=== PATIENT | male | born 1960 | race Caucasian/White ===

== ENCOUNTER 2018-12-16 13:54 | Emergency (ER) | payer OTHER ==
[2018-12-16 14:10] VITALS: BP 126/84; PULSE 76; TEMP 98.5; BMI 27.0
--- NOTE | 2018-12-16 16:12 | PDOC ---
History of Present Illness - General Chief Complaint: Headache Stated Complaint: SINUS HEADACHE Time Seen by Provider: 12/16/18 16:04 History Source: Patient Exam Limitations: Physical Impairment - History of Present Illness Initial Comments: 12/16/18 16:14 Patient with no significant past medical history present with complaint of one- week history of nasal congestion, sinus pain and headache. Patient reported he saw his PCP couple days ago for symptoms and was only given nasal spray which has not been helping. denies dizziness, nausea, vomiting. Denies fever or chills. Denies any other symptoms Timing/Duration: reports: 1 week Past History - Past Medical History Allergies/Adverse Reactions: Allergies Allergy/AdvReac Type Severity Reaction Status Date / Time No Known Allergies Allergy Verified 03/25/13 14:19 Home Medications: Ambulatory Orders Aspirin Coated [Ecotrin -] 81 mg PO DAILY 03/27/13 Atorvastatin Calcium 20 mg PO DAILY 03/27/13 Insulin (Levemir) [Levemir Flexpen -] 35 units SCJ DAILY 03/27/13 Insulin (Novolog) [Novolog Flexpen -] 100 units SCJ DAILY 03/27/13 Levothyroxine [Synthroid -] 25 mcg PO DAILY 03/27/13 Lisinopril 10 mg PO DAILY 03/27/13 Nabumetone [Relafen -] 500 mg PO DAILY 03/27/13 Amox-Tr/K Cl [Augmentin - 875Mg Tablet] 1 tab PO BID #14 tablet 12/16/18 Loratadine 10 mg PO DAILY #10 capsule 12/16/18 Anemia: No Asthma: No Cancer: No Cardiac Disorders: No CVA: No COPD: No CHF: No Dementia: No Diabetes: Yes GI Disorders: Yes Disorders: No HTN: Yes Hypercholesterolemia: Yes Liver Disease: No Seizures: No Thyroid Disease: Yes - Surgical History Abdominal Surgery: No Appendectomy: No Cardiac Surgery: No Cholecystectomy: No Lung Surgery: No Neurologic Surgery: No Orthopedic Surgery: Yes (LT KNEE REPLACEMENT, RT KNEE ARTHROSCOPY) - Suicide/Smoking/Psychosocial Hx Smoking History: Current every day smoker Have you smoked in the past 12 months: No Number of Cigarettes Smoked Daily: 20 Information on smoking cessation initiated: No 'Breaking Loose' booklet given: 03/27/13 Hx Alcohol Use: Yes Drug/Substance Use Hx: No Neuro Specific PMHX - Complaint Specific PMHX Glaucoma: No Herniated Disk: No Migraine: No Neuropathy: No TIA: No Review of Systems - Review of Systems Able to Perform ROS?: Yes Is the patient limited [place] proficient: No Constitutional: No: Symptoms Reported, See HPI, Chills, Diaphoresis, Fever, Loss of Appetite, Malaise, Night Sweats, Weakness, Weight Stable, Unintentional Wgt. Loss, Unexplained wgt Loss, Other HEENTM: Yes: Symptoms Reported, See HPI, Nose Congestion, Other (sinus pain). No: Eye Pain, Blurred Vision, Tearing, Recent change in vision, Double Vision, Cataracts, Ear Pain, Ocular Prothesis, Ear Discharge, Nose Pain, Tinnitus, Nose Bleeding, Hearing Loss, Throat Pain, Throat Swelling, Mouth Pain, Dental Problems, Difficulty Swallowing, Mouth Swelling Respiratory: No: Symptoms reported, See HPI, Cough, Orthopnea, Shortness of Breath, SOB with Exertion, SOB at Rest, Stridor, Wheezing, Productive cough, Hemoptysis, Other Cardiac (ROS): No: Symptoms Reported, See HPI, Chest Pain, Edema, Irregular Heart Rate, Lightheadedness, Palpitations, Syncope, Chest Tightness, Other ABD/GI: No: Nausea, Vomiting Neurological: Yes: Headache. No: Numbness, Paresthesia, Seizure, Weakness, Ataxia, Dizziness All Other Systems: Reviewed and Negative *Physical Exam - Vital Signs Last Vital Signs Temp Pulse Resp BP Pulse Ox 98.5 F 76 20 126/84 100 12/16/18 14:06 12/16/18 14:06 12/16/18 14:06 12/16/18 14:06 12/16/18 14:06 - Physical Exam Comments: 12/16/18 16:15 GENERAL: Well developed, well nourished. Awake and alert. No acute distress. HEENT: Normocephalic, atraumatic. PERRLA, EOMI. No conjunctival pallor. Sclera are non-icteric. Moist mucous membranes. Oropharynx is clear. NECK: Supple. Full ROM. CARDIOVASCULAR: Regular rate and rhythm. No murmurs, rubs, or gallops. Distal pulses are 2+ and symmetric. PULMONARY: No evidence of respiratory distress. Lungs clear to auscultation bilaterally. No wheezing, rales or rhonchi. ABDOMINAL: Soft. Non-tender. Non-distended. No rebound or guarding. No organomegaly. Normoactive bowel sounds. MUSCULOSKELETAL Normal range of motion at all joints. SKIN: Warm and dry. Normal capillary refill. No rashes. No jaundice. NEUROLOGICAL: Alert, awake, appropriate. Gait is normal without ataxia. PSYCHIATRIC: Cooperative. Good eye contact. Appropriate mood General Appearance: Yes: Nourished, Appropriately Dressed. No: Apparent Distress Medical Decision Making - Medical Decision Making 12/16/18 16:16 Patient with no significant past medical history present with complaint of one- week history of nasal congestion, sinus pain and intermittent headaches. Patient denies nausea, vomiting, dizziness or any other symptoms. Clinical exam unremarkable except mild bilateral maxillary sinus tenderness. Normal neuro exam. Lungs clear to auscultation bilateral. Patient stable for outpatient management for sinusitis with ENT follow-up *DC/Admit/Observation/Transfer Diagnosis at time of Disposition: Sinusitis Qualifiers: Sinusitis location: frontal Chronicity: acute Recurrence: non-recurrent Qualified Code(s): J01.10 - Acute frontal sinusitis, unspecified Headache Qualifiers: Headache type: tension-type Headache chronicity pattern: episodic headache Intractability: not intractable Qualified Code(s): G44.219 - Episodic tension- type headache, not intractable - Discharge Dispostion Disposition: HOME Condition at time of disposition: Stable Decision to Admit order: No - Prescriptions Prescriptions: Amox-Tr/K Cl [Augmentin - 875Mg Tablet] 1 tab PO BID #14 tablet Loratadine 10 mg PO DAILY #10 capsule - Referrals Referrals: Chuck Dejesus MD [Staff Physician] - - Patient Instructions Printed Discharge Instructions: Sinusitis Additional Instructions: Take medications as prescribed. Increase fluid intake. Follow-up referred ENT if no improvement in 4 days. - Post Discharge Activity
== END 2018-12-16 16:16 | disposition home or self-care (01) ==
LOC: JERFT 13:54
DX: J01.10 Acute frontal sinusitis, unspecified (principal); G44.219 Episodic tension-type headache, not intractable
CPT/HCPCS: 99281-25

== ENCOUNTER 2022-03-06 12:39 | Emergency (ER) | payer OTHER ==
[2022-03-06 13:03] VITALS: BP 139/81; PULSE 76; TEMP 98.3; BMI 27.3
[2022-03-06] MEDS ORDERED: DIPHTH,PERTUSS(ACELL),TET 0.5 ML DISP.SYRIN IM ONE ×2 (13:19→14:07)
[2022-03-06] MEDS ORDERED: LIDOCAINE HCL 1%, 10 MG/ML (50 mL VIAL) SQ ONE (13:19)
== END 2022-03-06 14:37 | disposition home or self-care (01) ==
LOC: FER 12:39
PROC: 0HQGXZZ Repair Left Hand Skin, External Approach (ICD-10-PCS; principal; 2022-03-06)
PROC: 3E0234Z Introduction of Serum, Toxoid and Vaccine into Muscle, Percutaneous Approach (ICD-10-PCS; 2022-03-06)
DX: S61.315A Laceration without foreign body of left ring finger with damage to nail, initial encounter (principal); S62.605B Fracture of unspecified phalanx of left ring finger, initial encounter for open fracture; W31.2XXA Contact with powered woodworking and forming machines, initial encounter
CPT/HCPCS: 73130-TC-LT-FY; 90715; 99284-25

== ENCOUNTER 2022-03-08 09:45 | Inpatient (IN) | payer OTHER ==
[2022-03-08 10:20] VITALS: BMI 23.6
[2022-03-08] MEDS ORDERED: SODIUM CHLORIDE 0.9% 500 ML INFUS.BAG IV ONE ×2 (10:49→12:12)
[2022-03-08 10:52] LABS: INR 0.97 (0.83-1.09); PROTHROMBIN TIME (PATIENT) 11.2 SEC (9.7-13.0)
[2022-03-08 10:55] LABS: ACTIVATED PTT 27.2 SECONDS (25.2-36.5)
[2022-03-08 11:05] LABS: CHLORIDE 81 mmol/L (98-107); SODIUM 122 mmol/L (136-145)
[2022-03-08 11:06] LABS: CALCIUM 9.9 mg/dL (8.5-10.1)
[2022-03-08 11:07] LABS: ALBUMIN 3.8 g/dl (3.4-5.0); BLOOD UREA NITROGEN 48.5 mg/dL (7-18); CO2 5 mmol/L (21-32); MAGNESIUM 3.2 mg/dL (1.8-2.4)
[2022-03-08 11:08] LABS: LIPASE 194 U/L (73-393)
[2022-03-08 11:09] LABS: SGPT/ALT 51 U/L (13-61)
[2022-03-08 11:10] LABS: SGOT/AST 37 U/L (15-37)
[2022-03-08 11:11] LABS: BILIRUBIN,TOTAL 0.6 mg/dL (0.2-1); TOT PROT 8.1 g/dl (6.4-8.2)
[2022-03-08 11:12] LABS: ALK PHOS 216 U/L (45-117)
[2022-03-08 11:16] LABS: LACTIC ACID 9.5 mmol/L (0.4-2.0)
[2022-03-08 11:24] LABS: VENOUS BASE EXCESS -29.1 mmol/L (-2-2); VENOUS O2 SATURATION 98.7 % (70-80); VENOUS PCO2 21.8 mmHg (38-52)
[2022-03-08 11:26] LABS: VENOUS PH 6.854 (7.310-7.410)
[2022-03-08 11:28] LABS: BASO % 0.7 % (0-2.0); HEMATOCRIT 45.2 % (35.4-49); HEMOGLOBIN 12.3 GM/dL (11.7-16.9); MCH 28.7 pg (25.7-33.7); MEAN CELL VOLUME 105.6 fl (80-96); MEAN PLT VOLUME 10.3 fl (7.5-11.1); MONO % 7.6 % (3.8-10.2); NEUT % 82.7 % (42.8-82.8); PLATELET COUNT 305 10^3/uL (134-434); RBC 4.29 M/mm3 (4.00-5.60); RDW 15.5 % (11.9-15.9); WHITE BLOOD COUNT 13.4 K/mm3 (4.0-10.0)
[2022-03-08 11:30] LABS: MCHC 27.1 g/dl (32.0-35.9)
[2022-03-08 11:56] LABS: ANISOCYTOSIS 2+; MACROCYTOSIS 2+
[2022-03-08 11:58] LABS: ANION GAP 37 MMOL/L (8-16); GLUCOSE,RANDOM 1566 mg/dL (74-106); PHOSPHOROUS 11.4 mg/dL (2.5-4.9)
[2022-03-08] MEDS ORDERED: INSULIN DRIP - PLEASE ORDER UNDER SETS NR ONE (12:09)
[2022-03-08] MEDS ORDERED: SODIUM BICARBONATE 8.4% 50 MEQ/50 ML DISP.SYRIN IVPUSH ONE ×2 (12:09→15:00)
[2022-03-08] MEDS ORDERED: INSULIN REGULAR HUMAN 100 UNITS/ML *VIAL* (FOR IVP) IVPUSH ONE (12:15)
[2022-03-08] MEDS ORDERED: SODIUM BICARBONATE 8.4% - 50 ML ONE (12:23)
[2022-03-08] MEDS ORDERED: INSULIN REGULAR 100 UNITS in SODIUM CHLORIDE 99 ML IVPB SCH (12:30)
[2022-03-08] MEDS ORDERED: SODIUM CHLORIDE 1,000 ML IV SCH (12:30)
[2022-03-08] MEDS ORDERED: SODIUM CHLORIDE 0.45% 1,000 ML IV SCH ×2 (12:45→14:45)
[2022-03-08] MEDS ORDERED: LORazepam 2 MG/ML SDV VIAL IVPUSH ONE ×2 (12:49→23:18)
[2022-03-08] MEDS ORDERED: INSULIN REGULAR HUMAN 100 UNITS/ML *VIAL IVPUSH ONE (13:07)
[2022-03-08] MEDS ORDERED: INSULIN REGULAR HUMAN 100 UNITS/ML *VIAL ONE (13:21)
[2022-03-08 13:57] LABS: EPI CELLS 17 /uL (0-25.1); HYALINE CASTS 2 /uL (0-3.1); URINE APPEARANCE CLEAR; URINE BACTERIA 3 /uL (0-1359); URINE BILIRUBIN NEGATIVE (NEGATIVE); URINE COLOR YELLOW; URINE GLUCOSE (UA) 3+ (NEGATIVE); URINE KETONE 2+ (NEGATIVE); URINE LEUK ESTERASE NEGATIVE (NEGATIVE); URINE NITRITE NEGATIVE (NEGATIVE); URINE PROTEIN 1+ (NEGATIVE); URINE RBC 5 /uL (0-23.9); URINE UROBILINOGEN 0.2 mg/dL (0.2-1.0); URINE WBC 30 /uL (0-25.8)
[2022-03-08 14:24] LABS: ARTERIAL BLD GAS O2 SATURATION 99.4 % (95-98); ARTERIAL BLOOD GAS BASE EXCESS -24.8 mmol/L (-2-2); ARTERIAL BLOOD GAS PCO2 < 16.70 mmHg (35-45); ARTERIAL BLOOD GAS PO2 282.3 mmHg (80-100)
[2022-03-08 14:25] LABS: ALLENS TEST POSITIVE
[2022-03-08 14:26] LABS: ARTERIAL BLOOD GAS pH 7.058 (7.350-7.450)
[2022-03-08] MEDS ORDERED: SODIUM BICARBONATE 8.4% - 150 MEQ in DEXTROSE 5%-WATER - 950 ML IVPB SCH (14:30)
[2022-03-08 14:54] LABS: CHLORIDE 87 mmol/L (98-107); SODIUM 127 mmol/L (136-145)
[2022-03-08 15:00] LABS: ALBUMIN 3.3 g/dl (3.4-5.0); BLOOD UREA NITROGEN 48.3 mg/dL (7-18); CO2 5 mmol/L (21-32)
[2022-03-08 15:02] LABS: BILIRUBIN,TOTAL 0.4 mg/dL (0.2-1)
[2022-03-08] MEDS: PANTOPRAZOLE SODIUM 40 MG VIAL IVPUSH SCH (15:02)
[2022-03-08] MEDS: LEVOTHYROXINE SODIUM 100 MCG VIAL IVPUSH SCH (15:02)
[2022-03-08 15:03] LABS: ALK PHOS 199 U/L (45-117); CREATININE 3.2 mg/dL (0.55-1.3); SGOT/AST 34 U/L (15-37); SGPT/ALT 48 U/L (13-61)
[2022-03-08 15:04] LABS: TOT PROT 7.5 g/dl (6.4-8.2)
[2022-03-08 15:05] LABS: ANION GAP 34 MMOL/L (8-16); CALCIUM 8.2 mg/dL (8.5-10.1); GLUCOSE,RANDOM 1402 mg/dL (74-106)
[2022-03-08 15:07] LABS: URINE BARBITURATES NEGATIVE (NEGATIVE); URINE BENZODIAZEPINES NEGATIVE (NEGATIVE)
[2022-03-08 15:08] LABS: METHADONE, UR NEGATIVE (NEGATIVE); OPIATES, URI NEGATIVE (NEGATIVE); URINE AMPHETAMINES NEGATIVE (NEGATIVE)
[2022-03-08 15:10] LABS: PHENCYCLIDINE,URINE NEGATIVE (NEGATIVE)
[2022-03-08 15:13] LABS: LACTIC ACID 6.8 mmol/L (0.4-2.0)
[2022-03-08 15:13] LABS: COCAINE, UR NEGATIVE (NEGATIVE)
[2022-03-08] MEDS ORDERED: SODIUM CHLORIDE 1,000 ML IV STA (16:07)
[2022-03-08 16:09] LABS: CHLORIDE 90 mmol/L (98-107); SODIUM 130 mmol/L (136-145)
[2022-03-08 16:10] LABS: CALCIUM 8.6 mg/dL (8.5-10.1)
[2022-03-08 16:11] LABS: ANION GAP 31 MMOL/L (8-16); BLOOD UREA NITROGEN 49.5 mg/dL (7-18); CO2 9 mmol/L (21-32)
[2022-03-08 16:14] LABS: CREATININE 3.4 mg/dL (0.55-1.3)
[2022-03-08 16:15] LABS: GLUCOSE,RANDOM 1341 mg/dL (74-106)
[2022-03-08 17:30] LABS: CHLORIDE 95 mmol/L (98-107); SODIUM 134 mmol/L (136-145)
[2022-03-08 17:32] LABS: ANION GAP 27 MMOL/L (8-16); CALCIUM 8.2 mg/dL (8.5-10.1); CO2 11 mmol/L (21-32)
[2022-03-08 17:33] LABS: ALBUMIN 2.9 g/dl (3.4-5.0); BLOOD UREA NITROGEN 45.9 mg/dL (7-18)
[2022-03-08 17:36] LABS: CREATININE 3.1 mg/dL (0.55-1.3); SGOT/AST 30 U/L (15-37); SGPT/ALT 40 U/L (13-61)
[2022-03-08 17:37] LABS: BILIRUBIN,TOTAL 0.4 mg/dL (0.2-1); TOT PROT 6.6 g/dl (6.4-8.2)
[2022-03-08 17:39] LABS: ALK PHOS 175 U/L (45-117)
[2022-03-08 17:41] LABS: GLUCOSE,RANDOM 1020 mg/dL (74-106)
[2022-03-08] MEDS: HEPARIN NA (PORCINE) 5,000 UNITS/ML 1ML VIAL SQ SCH (19:00)
[2022-03-08 20:26] LABS: CHLORIDE 104 mmol/L (98-107); SODIUM 141 mmol/L (136-145)
[2022-03-08 20:27] LABS: ANION GAP 20 MMOL/L (8-16); CALCIUM 8.9 mg/dL (8.5-10.1); CO2 17 mmol/L (21-32)
[2022-03-08] MEDS ORDERED: METOPROLOL TARTRATE 5 MG/5 ML VIAL IVPUSH PRN (20:31)
[2022-03-08 20:35] LABS: GLUCOSE,RANDOM 567 mg/dL (74-106)
[2022-03-08 20:36] LABS: LACTIC ACID 8.1 mmol/L (0.4-2.0)
[2022-03-08] MEDS ORDERED: SODIUM CHLORIDE 0.45% 1,000 ML with POTASSIUM CHLORIDE 20 MEQ IV SCH (20:49)
[2022-03-08] MEDS: MUPIROCIN 2% TOPICAL OINTMENT FOR DECOLONIZATION NS SCH (21:01)
[2022-03-08] MEDS: CHLORHEXIDINE GLUCONATE 4% CLEANSER FOR DECOLONIZATION TP SCH (21:01)
[2022-03-08] MEDS: LORazepam 2 MG/ML SDV VIAL IVPUSH ONE ×2 (22:42→23:33)
[2022-03-08 23:25] LABS: VENOUS BASE EXCESS -3.6 mmol/L (-2-2); VENOUS O2 SATURATION 70.1 % (70-80); VENOUS PCO2 35.1 mmHg (38-52); VENOUS PH 7.388 (7.310-7.410)
[2022-03-08 23:48] LABS: BLOOD UREA NITROGEN 38.4 mg/dL (7-18)
[2022-03-08 23:51] LABS: CREATININE 2.5 mg/dL (0.55-1.3)
[2022-03-09 00:30] LABS: LACTIC ACID 6.8 mmol/L (0.4-2.0)
[2022-03-09] MEDS: HEPARIN NA (PORCINE) 5,000 UNITS/ML 1ML VIAL SQ SCH ×3 (01:15→19:17)
[2022-03-09] MEDS ORDERED: DEXTROSE 5%-0.45% SALINE 1,000 ML IV SCH (01:15)
[2022-03-09] MEDS ORDERED: LORazepam 2 MG/ML SDV VIAL IVPUSH ONE (02:10)
[2022-03-09] MEDS ORDERED: INSULIN (LEVEMIR) 100 UNITS/ML UNITS SQ ONE (02:24)
[2022-03-09] MEDS: INSULIN SLIDING SCALE (NOVOLOG) 1 VIAL SQ SCH ×4 (06:19→21:53)
[2022-03-09 07:48] LABS: VENOUS BASE EXCESS -1.4 mmol/L (-2-2); VENOUS O2 SATURATION 73.7 % (70-80); VENOUS PCO2 36.5 mmHg (38-52); VENOUS PH 7.413 (7.310-7.410)
[2022-03-09 08:12] LABS: CALCIUM 8.8 mg/dL (8.5-10.1)
[2022-03-09 08:13] LABS: BLOOD UREA NITROGEN 30.8 mg/dL (7-18); MAGNESIUM 2.3 mg/dL (1.8-2.4)
[2022-03-09 08:16] LABS: CREATININE 1.8 mg/dL (0.55-1.3)
[2022-03-09 08:58] LABS: LACTIC ACID 2.7 mmol/L (0.4-2.0)
[2022-03-09] MEDS ORDERED: DEXTROSE 5%-WATER - 1,000 ML IV SCH (09:00)
[2022-03-09] MEDS: MUPIROCIN 2% TOPICAL OINTMENT FOR DECOLONIZATION NS SCH ×2 (09:32→21:26)
[2022-03-09] MEDS ORDERED: POTASSIUM PHOSPHATE 30 MM in SODIUM CHLORIDE 250 ML IVPB ONE (10:00)
[2022-03-09] MEDS ORDERED: DEXTROSE 5%-LACTATED RINGERS 1,000 ML IV SCH (10:30)
[2022-03-09] MEDS: LEVOTHYROXINE SODIUM 100 MCG VIAL IVPUSH SCH (10:45)
[2022-03-09] MEDS ORDERED: LACTATED RINGERS IVPB ONE (10:50)
[2022-03-09] MEDS ORDERED: POTASSIUM PHOSPHATE IVPB ONE (10:50)
[2022-03-09] MEDS ORDERED: DEXTROSE IVPB ONE (10:50)
[2022-03-09] MEDS: PANTOPRAZOLE SODIUM 40 MG VIAL IVPUSH SCH (11:28)
[2022-03-09 11:53] LABS: EOS % 0.1 % (0-4.5); HEMATOCRIT 33.1 % (35.4-49); HEMOGLOBIN 11.4 GM/dL (11.7-16.9); LYMPH % 7.6 % (8-40); MCH 28.5 pg (25.7-33.7); MCHC 34.4 g/dl (32.0-35.9); MEAN CELL VOLUME 82.8 fl (80-96); MEAN PLT VOLUME 8.2 fl (7.5-11.1); MONO % 5.3 % (3.8-10.2); PLATELET COUNT 212 10^3/uL (134-434); RBC 3.99 M/mm3 (4.00-5.60); RDW 13.8 % (11.9-15.9); WHITE BLOOD COUNT 12.9 K/mm3 (4.0-10.0)
[2022-03-09] MEDS: DEXTROSE 5%-0.45% SALINE 1,000 ML IV SCH (14:00)
[2022-03-09 15:45] LABS: CALCIUM 8.8 mg/dL (8.5-10.1)
[2022-03-09 15:46] LABS: ALBUMIN 3.1 g/dl (3.4-5.0); BLOOD UREA NITROGEN 22.5 mg/dL (7-18)
[2022-03-09 15:49] LABS: CREATININE 1.5 mg/dL (0.55-1.3)
[2022-03-09] MEDS: CHLORHEXIDINE GLUCONATE 4% CLEANSER FOR DECOLONIZATION TP SCH (21:26)
[2022-03-10] MEDS: HEPARIN NA (PORCINE) 5,000 UNITS/ML 1ML VIAL SQ SCH ×3 (02:10→17:51)
[2022-03-10] MEDS: INSULIN SLIDING SCALE (NOVOLOG) 1 VIAL SQ SCH ×4 (06:29→21:29)
[2022-03-10] MEDS ORDERED: INSULIN (LEVEMIR) 100 UNITS/ML UNITS SQ ONE (06:52)
[2022-03-10 08:20] LABS: BASO % 0.5 % (0-2.0); EOS % 0.3 % (0-4.5); HEMATOCRIT 35.6 % (35.4-49); HEMOGLOBIN 12.1 GM/dL (11.7-16.9); LYMPH % 11.3 % (8-40); MCH 28.9 pg (25.7-33.7); MEAN CELL VOLUME 84.8 fl (80-96); MEAN PLT VOLUME 9.9 fl (7.5-11.1); MONO % 4.6 % (3.8-10.2); NEUT % 83.3 % (42.8-82.8); PLATELET COUNT 201 10^3/uL (134-434); RDW 14.2 % (11.9-15.9); WHITE BLOOD COUNT 9.1 K/mm3 (4.0-10.0)
[2022-03-10 08:23] LABS: ALBUMIN 3.2 g/dl (3.4-5.0)
[2022-03-10 08:24] LABS: BLOOD UREA NITROGEN 13.6 mg/dL (7-18); MAGNESIUM 1.9 mg/dL (1.8-2.4)
[2022-03-10 08:27] LABS: CREATININE 1.2 mg/dL (0.55-1.3); PHOSPHOROUS 2.2 mg/dL (2.5-4.9)
[2022-03-10] MEDS: PANTOPRAZOLE SODIUM 40 MG VIAL IVPUSH SCH (09:32)
[2022-03-10] MEDS: LEVOTHYROXINE SODIUM 100 MCG VIAL IVPUSH SCH (09:33)
[2022-03-10] MEDS: MUPIROCIN 2% TOPICAL OINTMENT FOR DECOLONIZATION NS SCH ×2 (09:33→21:28)
[2022-03-10] MEDS: DEXMEDETOMIDINE IN 0.9 % NACL 400 MCG/100 ML VIAL IVPB SCH (10:13)
[2022-03-10] MEDS ORDERED: POTASSIUM PHOSPHATE 15 MM in DEXTROSE 5%-WATER - 250 ML IVPB ONE (10:39)
[2022-03-10] MEDS: DEXTROSE 5%-0.45% SALINE 1,000 ML IV SCH (17:09)
[2022-03-10] MEDS ORDERED: DEXTROSE 50%-WATER - 25 GM/50 ML VIAL IVPUSH PRN (21:02)
[2022-03-10] MEDS ORDERED: DEXTROSE 50%-WATER - 25 GM/50 ML VIAL IVPUSH ONE (21:02)
[2022-03-10] MEDS ORDERED: DEXTROSE 5%-0.45% SALINE 1,000 ML IV SCH ×2 (21:03→21:58)
[2022-03-10] MEDS ORDERED: DEXTROSE 50%-WATER 25 GM/50 ML DISP.SYRIN ONE (21:21)
[2022-03-10] MEDS: CHLORHEXIDINE GLUCONATE 4% CLEANSER FOR DECOLONIZATION TP SCH (21:29)
[2022-03-10] MEDS ORDERED: INSULIN (LEVEMIR) 100 UNITS/ML UNITS SQ SCH (22:00)
[2022-03-10] MEDS ORDERED: DEXTROSE 5%-WATER - 1,000 ML IV SCH ×2 (23:00→23:44)
[2022-03-10] MEDS ORDERED: THIAMINE HCL 200 MG/2 ML VIAL IM ONE (23:47)
[2022-03-11] MEDS: HEPARIN NA (PORCINE) 5,000 UNITS/ML 1ML VIAL SQ SCH ×3 (06:03→21:22)
[2022-03-11] MEDS: INSULIN SLIDING SCALE (NOVOLOG) 1 VIAL SQ SCH ×4 (06:03→22:10)
[2022-03-11] MEDS: INSULIN (LEVEMIR) 100 UNITS/ML UNITS SQ SCH ×2 (06:03→21:22)
[2022-03-11] MEDS: DEXTROSE 5%-0.45% SALINE 1,000 ML IV SCH (07:00)
[2022-03-11 07:44] LABS: HEMATOCRIT 33.2 % (35.4-49); HEMOGLOBIN 11.4 GM/dL (11.7-16.9); MCH 29.1 pg (25.7-33.7); MCHC 34.4 g/dl (32.0-35.9); MEAN CELL VOLUME 84.7 fl (80-96); MEAN PLT VOLUME 8.9 fl (7.5-11.1); PLATELET COUNT 148 10^3/uL (134-434); RBC 3.92 M/mm3 (4.00-5.60)
[2022-03-11] MEDS ORDERED: TAMSULOSIN HCL 0.4 MG CAP PO SCH (08:30)
[2022-03-11 08:33] LABS: BLOOD UREA NITROGEN 12.4 mg/dL (7-18); MAGNESIUM 1.8 mg/dL (1.8-2.4)
[2022-03-11 08:35] LABS: PHOSPHOROUS 2.6 mg/dL (2.5-4.9)
[2022-03-11 08:36] LABS: CREATININE 0.9 mg/dL (0.55-1.3)
[2022-03-11 08:37] LABS: BILIRUBIN,TOTAL 1.2 mg/dL (0.2-1); TOT PROT 5.7 g/dl (6.4-8.2)
[2022-03-11 08:39] LABS: ALBUMIN 2.2 g/dl (3.4-5.0)
[2022-03-11] MEDS: PANTOPRAZOLE SODIUM 40 MG VIAL IVPUSH SCH (10:02)
[2022-03-11] MEDS: DEXMEDETOMIDINE IN 0.9 % NACL 400 MCG/100 ML VIAL IVPB SCH (10:03)
[2022-03-11] MEDS: LEVOTHYROXINE SODIUM 100 MCG VIAL IVPUSH SCH (10:10)
[2022-03-11] MEDS: DOXAZOSIN MESYLATE 1 MG TABLET PO SCH (10:11)
[2022-03-11] MEDS ORDERED: ACETAMINOPHEN 1000 MG/100 ML BAG IVPB STA (12:19)
[2022-03-11] MEDS ORDERED: PHENobarbital SODIUM 65 MG/1 ML VIAL IVPUSH ONE (12:30)
[2022-03-11] MEDS: MUPIROCIN 2% TOPICAL OINTMENT FOR DECOLONIZATION NS SCH (12:30)
[2022-03-11] MEDS: LORazepam 2 MG/ML SDV VIAL IVPUSH PRN (20:04)
[2022-03-12] MEDS: LORazepam 2 MG/ML SDV VIAL IVPUSH PRN ×2 (03:21→22:10)
[2022-03-12] MEDS: HEPARIN NA (PORCINE) 5,000 UNITS/ML 1ML VIAL SQ SCH ×3 (06:59→22:09)
[2022-03-12] MEDS: INSULIN SLIDING SCALE (NOVOLOG) 1 VIAL SQ SCH ×4 (07:00→22:15)
[2022-03-12] MEDS: INSULIN (LEVEMIR) 100 UNITS/ML UNITS SQ SCH ×2 (07:00→22:11)
[2022-03-12] MEDS: DEXTROSE 5%-0.45% SALINE 1,000 ML IV SCH (08:09)
[2022-03-12 08:19] LABS: CALCIUM 8.2 mg/dL (8.5-10.1)
[2022-03-12 08:20] LABS: BLOOD UREA NITROGEN 11.6 mg/dL (7-18); MAGNESIUM 1.8 mg/dL (1.8-2.4)
[2022-03-12 08:23] LABS: CREATININE 0.9 mg/dL (0.55-1.3); PHOSPHOROUS 2.5 mg/dL (2.5-4.9)
[2022-03-12 09:57] LABS: HEMATOCRIT 32.7 % (35.4-49); HEMOGLOBIN 11.5 GM/dL (11.7-16.9); MCH 29.6 pg (25.7-33.7); MCHC 35.1 g/dl (32.0-35.9); MEAN CELL VOLUME 84.3 fl (80-96); MEAN PLT VOLUME 8.8 fl (7.5-11.1); PLATELET COUNT 149 10^3/uL (134-434); RBC 3.87 M/mm3 (4.00-5.60); WHITE BLOOD COUNT 7.5 K/mm3 (4.0-10.0)
[2022-03-12] MEDS ORDERED: VANCOMYCIN/WATER FOR INJ (PEG) 1,000 MG/200 ML BAG IVPB ONE (10:45)
[2022-03-12] MEDS: LEVOTHYROXINE SODIUM 100 MCG VIAL IVPUSH SCH (11:18)
[2022-03-12] MEDS: DOXAZOSIN MESYLATE 1 MG TABLET PO SCH (11:32)
[2022-03-12] MEDS: DEXMEDETOMIDINE IN 0.9 % NACL 400 MCG/100 ML VIAL IVPB SCH (13:48)
[2022-03-13] MEDS: INSULIN (LEVEMIR) 100 UNITS/ML UNITS SQ SCH ×2 (06:15→23:19)
[2022-03-13] MEDS: INSULIN SLIDING SCALE (NOVOLOG) 1 VIAL SQ SCH ×4 (06:15→23:19)
[2022-03-13] MEDS: HEPARIN NA (PORCINE) 5,000 UNITS/ML 1ML VIAL SQ SCH ×3 (06:16→23:20)
[2022-03-13] MEDS: DOXAZOSIN MESYLATE 1 MG TABLET PO SCH (09:39)
[2022-03-13] MEDS: LEVOTHYROXINE SODIUM 100 MCG VIAL IVPUSH SCH (09:39)
[2022-03-13 11:08] LABS: HEMATOCRIT 27.8 % (35.4-49); HEMOGLOBIN 9.6 GM/dL (11.7-16.9); MCH 29.2 pg (25.7-33.7); MCHC 34.4 g/dl (32.0-35.9); MEAN CELL VOLUME 84.7 fl (80-96); MEAN PLT VOLUME 9.2 fl (7.5-11.1); PLATELET COUNT 150 10^3/uL (134-434); RBC 3.28 M/mm3 (4.00-5.60); RDW 13.5 % (11.9-15.9)
[2022-03-13 11:47] LABS: BLOOD UREA NITROGEN 15.7 mg/dL (7-18)
[2022-03-13 11:48] LABS: CALCIUM 8.4 mg/dL (8.5-10.1)
[2022-03-13 11:49] LABS: MAGNESIUM 1.8 mg/dL (1.8-2.4)
[2022-03-13 11:50] LABS: CREATININE 1.3 mg/dL (0.55-1.3); PHOSPHOROUS 2.9 mg/dL (2.5-4.9)
[2022-03-13] MEDS: VANCOMYCIN 1 GM in D5W (PRE-DOCKED) 1,000 MG/250 ML IVPB SCH ×2 (11:59→18:05)
[2022-03-13] MEDS: VANCOMYCIN/WATER FOR INJ (PEG) 1,000 MG/200 ML BAG IVPB SCH (11:59)
[2022-03-13] MEDS ORDERED: SODIUM CHLORIDE 0.45% 1,000 ML IV SCH (12:45)
[2022-03-13] MEDS ORDERED: D5-1/2NS+10 MEQ KCL - 10 MEQ/1,000 ML INFUS.BAG IV SCH (17:30)
[2022-03-13] MEDS: LORazepam 2 MG/ML SDV VIAL IVPUSH PRN (18:20)
[2022-03-13] MEDS ORDERED: ACETAMINOPHEN 1000 MG/100 ML BAG IVPB PRN (18:47)
[2022-03-13] MEDS: SODIUM CHLORIDE 1,000 ML IV SCH (19:07)
[2022-03-13 20:25] LABS: HEMATOCRIT 27.3 % (35.4-49); HEMOGLOBIN 9.3 GM/dL (11.7-16.9); MCH 28.7 pg (25.7-33.7); MCHC 34.2 g/dl (32.0-35.9); MEAN CELL VOLUME 83.9 fl (80-96); MEAN PLT VOLUME 9.3 fl (7.5-11.1); PLATELET COUNT 118 10^3/uL (134-434); RBC 3.25 M/mm3 (4.00-5.60); RDW 13.6 % (11.9-15.9); WHITE BLOOD COUNT 2.4 K/mm3 (4.0-10.0)
[2022-03-13 20:29] LABS: CALCIUM 7.8 mg/dL (8.5-10.1)
[2022-03-13 20:30] LABS: ALBUMIN 2.3 g/dl (3.4-5.0); BLOOD UREA NITROGEN 16.6 mg/dL (7-18)
[2022-03-13 20:33] LABS: CREATININE 1.4 mg/dL (0.55-1.3)
[2022-03-13 20:34] LABS: TOT PROT 5.5 g/dl (6.4-8.2)
[2022-03-13 21:57] LABS: ANISOCYTOSIS 0; MACROCYTOSIS 0
[2022-03-14] MEDS ORDERED: DEXTROSE 5%-WATER - 50 ML IVPB ONE ×4 (00:31→18:34)
[2022-03-14] MEDS ORDERED: PIPERACILLIN/TAZOBACTAM 3.375 GM VIAL IVPB ONE ×4 (00:31→18:33)
[2022-03-14] MEDS: LORazepam 2 MG/ML SDV VIAL IVPUSH PRN ×5 (00:40→23:08)
[2022-03-14] MEDS: PIPERACILLIN/TAZOB 3.375 GM 3.375 GM in DEXTROSE 5%-WATER - 50 ML IVPB SCH ×4 (00:53→18:38)
[2022-03-14] MEDS: VANCOMYCIN/WATER FOR INJ (PEG) 1,000 MG/200 ML BAG IVPB SCH ×3 (02:50→23:10)
[2022-03-14] MEDS: HEPARIN NA (PORCINE) 5,000 UNITS/ML 1ML VIAL SQ SCH ×3 (07:02→23:08)
[2022-03-14] MEDS: INSULIN (LEVEMIR) 100 UNITS/ML UNITS SQ SCH ×2 (07:59→23:45)
[2022-03-14] MEDS: INSULIN SLIDING SCALE (NOVOLOG) 1 VIAL SQ SCH ×4 (07:59→23:45)
[2022-03-14 08:43] LABS: BASO % 0.6 % (0-2.0); EOS % 1.8 % (0-4.5); HEMATOCRIT 28.4 % (35.4-49); HEMOGLOBIN 9.7 GM/dL (11.7-16.9); MCH 29.1 pg (25.7-33.7); MEAN CELL VOLUME 85.6 fl (80-96); MEAN PLT VOLUME 9.4 fl (7.5-11.1); MONO % 11.3 % (3.8-10.2); NEUT % 73.3 % (42.8-82.8); PLATELET COUNT 142 10^3/uL (134-434); RBC 3.32 M/mm3 (4.00-5.60); RDW 14.2 % (11.9-15.9); WHITE BLOOD COUNT 6.6 K/mm3 (4.0-10.0)
[2022-03-14] MEDS: LEVOTHYROXINE SODIUM 100 MCG VIAL IVPUSH SCH (09:04)
[2022-03-14] MEDS: DOXAZOSIN MESYLATE 1 MG TABLET PO SCH (09:05)
[2022-03-14 09:14] LABS: CALCIUM 7.9 mg/dL (8.5-10.1)
[2022-03-14 09:15] LABS: ALBUMIN 2.3 g/dl (3.4-5.0); BLOOD UREA NITROGEN 14.1 mg/dL (7-18)
[2022-03-14 09:16] LABS: CREATININE 1.1 mg/dL (0.55-1.3)
[2022-03-14 09:18] LABS: BILIRUBIN,TOTAL 0.6 mg/dL (0.2-1); TOT PROT 5.7 g/dl (6.4-8.2)
[2022-03-14 12:08] LABS: EPI CELLS 3 /uL (0-25.1); HYALINE CASTS 1 /uL (0-3.1); PH,URINE 7.5 (5.0-8.0); URINE APPEARANCE CLOUDY; URINE BILIRUBIN NEGATIVE (NEGATIVE); URINE COLOR YELLOW; URINE GLUCOSE (UA) NEGATIVE (NEGATIVE); URINE KETONE NEGATIVE (NEGATIVE); URINE LEUK ESTERASE 3+ (NEGATIVE); URINE NITRITE POSITIVE (NEGATIVE); URINE PROTEIN 2+ (NEGATIVE); URINE RBC 894 /uL (0-23.9); URINE UROBILINOGEN 0.2 mg/dL (0.2-1.0); URINE WBC 3605 /uL (0-25.8)
[2022-03-14 14:27] LABS: URINE BACTERIA MODERATE /uL (0-1359)
[2022-03-14] MEDS: TAMSULOSIN HCL 0.4 MG CAP PO SCH (14:31)
[2022-03-14] MEDS: SODIUM CHLORIDE 1,000 ML IV SCH (18:41)
[2022-03-14] MEDS ORDERED: POTASSIUM CHLORIDE 10 MEQ in SODIUM CHLORIDE 0.45% 1,000 ML IVPB SCH (23:45)
[2022-03-15] MEDS ORDERED: PIPERACILLIN/TAZOBACTAM 3.375 GM VIAL IVPB ONE ×3 (03:13→16:21)
[2022-03-15] MEDS ORDERED: DEXTROSE 5%-WATER - 50 ML IVPB ONE ×3 (03:13→16:21)
[2022-03-15] MEDS: PIPERACILLIN/TAZOB 3.375 GM 3.375 GM in DEXTROSE 5%-WATER - 50 ML IVPB SCH ×3 (04:03→18:06)
[2022-03-15] MEDS: HEPARIN NA (PORCINE) 5,000 UNITS/ML 1ML VIAL SQ SCH ×3 (06:54→22:24)
[2022-03-15] MEDS: INSULIN (LEVEMIR) 100 UNITS/ML UNITS SQ SCH ×2 (07:02→22:32)
[2022-03-15] MEDS: INSULIN SLIDING SCALE (NOVOLOG) 1 VIAL SQ SCH ×4 (07:02→22:32)
[2022-03-15] MEDS: TAMSULOSIN HCL 0.4 MG CAP PO SCH (08:47)
[2022-03-15] MEDS: LEVOTHYROXINE SODIUM 100 MCG VIAL IVPUSH SCH (09:50)
[2022-03-15] MEDS: DOXAZOSIN MESYLATE 1 MG TABLET PO SCH (10:45)
[2022-03-15] MEDS: VANCOMYCIN/WATER FOR INJ (PEG) 1,000 MG/200 ML BAG IVPB SCH (11:06)
[2022-03-15] MEDS ORDERED: POTASSIUM CHLORIDE 10 MEQ in SODIUM CHLORIDE 0.45% 1,000 ML IVPB SCH (16:22)
[2022-03-16] MEDS ORDERED: DEXTROSE 5%-WATER - 50 ML IVPB ONE ×2 (01:42→09:09)
[2022-03-16] MEDS ORDERED: PIPERACILLIN/TAZOBACTAM 3.375 GM VIAL IVPB ONE ×3 (01:42→14:39)
[2022-03-16] MEDS: LORazepam 2 MG/ML SDV VIAL IVPUSH PRN (02:17)
[2022-03-16] MEDS: PIPERACILLIN/TAZOB 3.375 GM 3.375 GM in DEXTROSE 5%-WATER - 50 ML IVPB SCH ×2 (02:18→10:32)
[2022-03-16] MEDS: HEPARIN NA (PORCINE) 5,000 UNITS/ML 1ML VIAL SQ SCH ×3 (06:27→21:03)
[2022-03-16] MEDS: INSULIN SLIDING SCALE (NOVOLOG) 1 VIAL SQ SCH ×4 (06:27→21:20)
[2022-03-16] MEDS ORDERED: DEXTROSE 50%-WATER - 25 GM/50 ML VIAL IVPUSH ONE (06:35)
[2022-03-16] MEDS: INSULIN (LEVEMIR) 100 UNITS/ML UNITS SQ SCH ×2 (06:37→21:22)
[2022-03-16] MEDS ORDERED: GLUCAGON 1 MG KIT IM ONE (06:39)
[2022-03-16] MEDS: TAMSULOSIN HCL 0.4 MG CAP PO SCH (09:08)
[2022-03-16] MEDS: DOXAZOSIN MESYLATE 1 MG TABLET PO SCH (09:08)
[2022-03-16 09:27] LABS: HEMATOCRIT 30.2 % (35.4-49); HEMOGLOBIN 10.4 GM/dL (11.7-16.9); MCH 28.8 pg (25.7-33.7); MCHC 34.3 g/dl (32.0-35.9); MEAN CELL VOLUME 84.1 fl (80-96); PLATELET COUNT 240 10^3/uL (134-434); RBC 3.59 M/mm3 (4.00-5.60); RDW 13.9 % (11.9-15.9)
[2022-03-16 10:04] LABS: ALBUMIN 2.5 g/dl (3.4-5.0); BLOOD UREA NITROGEN 11.7 mg/dL (7-18); CALCIUM 8.8 mg/dL (8.5-10.1)
[2022-03-16 10:08] LABS: BILIRUBIN,TOTAL 0.4 mg/dL (0.2-1)
[2022-03-16 10:10] LABS: TOT PROT 6.5 g/dl (6.4-8.2)
[2022-03-16] MEDS: LEVOTHYROXINE SODIUM 100 MCG VIAL IVPUSH SCH (10:32)
[2022-03-16] MEDS: POTASSIUM CHLORIDE 10 MEQ in SODIUM CHLORIDE 0.45% 1,000 ML IVPB SCH (16:12)
[2022-03-16] MEDS: ALPRAZolam 1 MG TABLET PO PRN (21:03)
[2022-03-17] MEDS ORDERED: PIPERACILLIN/TAZOBACTAM 3.375 GM VIAL IVPB ONE ×3 (01:09→15:34)
[2022-03-17] MEDS ORDERED: DEXTROSE 5%-WATER - 50 ML IVPB ONE ×3 (01:10→15:34)
[2022-03-17] MEDS: POTASSIUM CHLORIDE 10 MEQ in SODIUM CHLORIDE 0.45% 1,000 ML IVPB SCH ×3 (01:16→23:43)
[2022-03-17] MEDS: LORazepam 2 MG/ML SDV VIAL IVPUSH PRN (01:17)
[2022-03-17] MEDS: PIPERACILLIN/TAZOB 3.375 GM 3.375 GM in DEXTROSE 5%-WATER - 50 ML IVPB SCH ×3 (02:59→18:06)
[2022-03-17] MEDS: INSULIN (LEVEMIR) 100 UNITS/ML UNITS SQ SCH ×2 (06:05→23:41)
[2022-03-17] MEDS: INSULIN SLIDING SCALE (NOVOLOG) 1 VIAL SQ SCH ×4 (06:06→23:42)
[2022-03-17] MEDS: HEPARIN NA (PORCINE) 5,000 UNITS/ML 1ML VIAL SQ SCH ×3 (06:06→23:35)
[2022-03-17 09:37] LABS: ALBUMIN 2.3 g/dl (3.4-5.0); BLOOD UREA NITROGEN 9.5 mg/dL (7-18); CALCIUM 8.9 mg/dL (8.5-10.1)
[2022-03-17 09:41] LABS: BILIRUBIN,TOTAL 1.8 mg/dL (0.2-1)
[2022-03-17] MEDS: TAMSULOSIN HCL 0.4 MG CAP PO SCH (10:38)
[2022-03-17] MEDS: DOXAZOSIN MESYLATE 1 MG TABLET PO SCH (10:39)
[2022-03-17] MEDS: LEVOTHYROXINE SODIUM 100 MCG VIAL IVPUSH SCH (14:26)
[2022-03-17] MEDS ORDERED: INSULIN (NOVOLOG) ASPART 100 UNITS/ML 10ML VIAL ONE (17:15)
[2022-03-17] MEDS: ALPRAZolam 1 MG TABLET PO PRN (23:35)
[2022-03-18] MEDS ORDERED: PIPERACILLIN/TAZOBACTAM 3.375 GM VIAL IVPB ONE ×3 (02:04→18:24)
[2022-03-18] MEDS ORDERED: DEXTROSE 5%-WATER - 50 ML IVPB ONE ×3 (02:04→18:25)
[2022-03-18] MEDS: PIPERACILLIN/TAZOB 3.375 GM 3.375 GM in DEXTROSE 5%-WATER - 50 ML IVPB SCH ×4 (03:49→18:55)
[2022-03-18] MEDS: POTASSIUM CHLORIDE 10 MEQ in SODIUM CHLORIDE 0.45% 1,000 ML IVPB SCH ×4 (03:50→18:56)
[2022-03-18] MEDS: LORazepam 2 MG/ML SDV VIAL IVPUSH PRN (03:50)
[2022-03-18] MEDS: LEVOTHYROXINE NA 75 MCG TABLET (FP) PO SCH (06:56)
[2022-03-18] MEDS: HEPARIN NA (PORCINE) 5,000 UNITS/ML 1ML VIAL SQ SCH ×3 (06:56→21:24)
[2022-03-18] MEDS: INSULIN (LEVEMIR) 100 UNITS/ML UNITS SQ SCH ×3 (06:57→21:24)
[2022-03-18] MEDS: INSULIN SLIDING SCALE (NOVOLOG) 1 VIAL SQ SCH ×4 (07:04→21:25)
[2022-03-18] MEDS: DOXAZOSIN MESYLATE 1 MG TABLET PO SCH (10:50)
[2022-03-18] MEDS: FOLIC ACID 1 MG TABLET (FP) PO SCH (10:50)
[2022-03-18] MEDS: TAMSULOSIN HCL 0.4 MG CAP PO SCH (10:50)
[2022-03-18] MEDS: CYANOCOBALAMIN (VITAMIN B-12) 1000 MCG/1 ML VIAL IM SCH (10:51)
[2022-03-19] MEDS ORDERED: DEXTROSE 5%-WATER - 50 ML IVPB ONE ×3 (01:36→14:23)
[2022-03-19] MEDS ORDERED: PIPERACILLIN/TAZOBACTAM 3.375 GM VIAL IVPB ONE ×3 (01:36→14:23)
[2022-03-19] MEDS: PIPERACILLIN/TAZOB 3.375 GM 3.375 GM in DEXTROSE 5%-WATER - 50 ML IVPB SCH ×3 (02:27→18:02)
[2022-03-19] MEDS: HEPARIN NA (PORCINE) 5,000 UNITS/ML 1ML VIAL SQ SCH ×3 (06:24→22:48)
[2022-03-19] MEDS: INSULIN SLIDING SCALE (NOVOLOG) 1 VIAL SQ SCH ×4 (06:38→22:49)
[2022-03-19] MEDS: LEVOTHYROXINE NA 75 MCG TABLET (FP) PO SCH (06:55)
[2022-03-19] MEDS: INSULIN (LEVEMIR) 100 UNITS/ML UNITS SQ SCH ×2 (06:55→22:48)
[2022-03-19 08:48] LABS: ALBUMIN 2.4 g/dl (3.4-5.0); BLOOD UREA NITROGEN 6.2 mg/dL (7-18); CALCIUM 8.4 mg/dL (8.5-10.1)
[2022-03-19 08:51] LABS: CREATININE 1.1 mg/dL (0.55-1.3)
[2022-03-19 08:53] LABS: BILIRUBIN,TOTAL 0.5 mg/dL (0.2-1); TOT PROT 6.1 g/dl (6.4-8.2)
[2022-03-19] MEDS: TAMSULOSIN HCL 0.4 MG CAP PO SCH (09:00)
[2022-03-19] MEDS: FOLIC ACID 1 MG TABLET (FP) PO SCH (10:28)
[2022-03-19] MEDS: DOXAZOSIN MESYLATE 1 MG TABLET PO SCH (10:28)
[2022-03-19] MEDS: CYANOCOBALAMIN (VITAMIN B-12) 1000 MCG/1 ML VIAL IM SCH (10:29)
[2022-03-19] MEDS: POTASSIUM CHLORIDE 10 MEQ in SODIUM CHLORIDE 0.45% 1,000 ML IVPB SCH (11:45)
[2022-03-19] MEDS ORDERED: DEXTROSE 50%-WATER - 25 GM/50 ML VIAL IVPUSH PRN (21:46)
[2022-03-19] MEDS ORDERED: LORazepam 2 MG/ML SDV VIAL IVPUSH PRN (21:46)
[2022-03-20] MEDS ORDERED: PIPERACILLIN/TAZOBACTAM 3.375 GM VIAL IVPB ONE (01:10)
[2022-03-20] MEDS ORDERED: DEXTROSE 5%-WATER - 50 ML IVPB ONE (01:10)
[2022-03-20] MEDS: PIPERACILLIN/TAZOB 3.375 GM 3.375 GM in DEXTROSE 5%-WATER - 50 ML IVPB SCH (03:04)
[2022-03-20] MEDS: INSULIN SLIDING SCALE (NOVOLOG) 1 VIAL SQ SCH ×4 (06:25→21:04)
[2022-03-20] MEDS: INSULIN (LEVEMIR) 100 UNITS/ML UNITS SQ SCH ×2 (06:25→21:03)
[2022-03-20] MEDS: HEPARIN NA (PORCINE) 5,000 UNITS/ML 1ML VIAL SQ SCH ×3 (06:25→21:03)
[2022-03-20] MEDS: LEVOTHYROXINE NA 75 MCG TABLET (FP) PO SCH (06:26)
[2022-03-20] MEDS: TAMSULOSIN HCL 0.4 MG CAP PO SCH (10:38)
[2022-03-20] MEDS: FOLIC ACID 1 MG TABLET (FP) PO SCH (10:38)
[2022-03-20] MEDS: DOXAZOSIN MESYLATE 1 MG TABLET PO SCH (10:40)
[2022-03-20] MEDS: CYANOCOBALAMIN (VITAMIN B-12) 1000 MCG/1 ML VIAL IM SCH (10:40)
[2022-03-20] MEDS: POTASSIUM CHLORIDE 10 MEQ in SODIUM CHLORIDE 0.45% 1,000 ML IVPB SCH (15:22)
[2022-03-20] MEDS: ALPRAZolam 1 MG TABLET PO PRN (21:03)
[2022-03-21] MEDS: LEVOTHYROXINE NA 75 MCG TABLET (FP) PO SCH (06:26)
[2022-03-21] MEDS: INSULIN (LEVEMIR) 100 UNITS/ML UNITS SQ SCH ×2 (06:26→21:19)
[2022-03-21] MEDS: INSULIN SLIDING SCALE (NOVOLOG) 1 VIAL SQ SCH ×4 (06:26→21:19)
[2022-03-21] MEDS: HEPARIN NA (PORCINE) 5,000 UNITS/ML 1ML VIAL SQ SCH ×3 (06:26→21:20)
[2022-03-21 08:51] LABS: HEMATOCRIT 28.1 % (35.4-49); HEMOGLOBIN 9.9 GM/dL (11.7-16.9); MCH 29.8 pg (25.7-33.7); MCHC 35.2 g/dl (32.0-35.9); MEAN CELL VOLUME 84.8 fl (80-96); MEAN PLT VOLUME 9.1 fl (7.5-11.1); PLATELET COUNT 295 10^3/uL (134-434); RBC 3.31 M/mm3 (4.00-5.60); RDW 14.3 % (11.9-15.9); WHITE BLOOD COUNT 3.8 K/mm3 (4.0-10.0)
[2022-03-21] MEDS: FOLIC ACID 1 MG TABLET (FP) PO SCH (09:04)
[2022-03-21] MEDS: CYANOCOBALAMIN (VITAMIN B-12) 1000 MCG/1 ML VIAL IM SCH (09:04)
[2022-03-21] MEDS: TAMSULOSIN HCL 0.4 MG CAP PO SCH (09:04)
[2022-03-21 09:13] LABS: ALBUMIN 2.4 g/dl (3.4-5.0); BLOOD UREA NITROGEN 5.6 mg/dL (7-18); CALCIUM 8.5 mg/dL (8.5-10.1); MAGNESIUM 1.9 mg/dL (1.8-2.4)
[2022-03-21 09:16] LABS: CREATININE 0.9 mg/dL (0.55-1.3)
[2022-03-21 09:17] LABS: BILIRUBIN,TOTAL 0.4 mg/dL (0.2-1); TOT PROT 6.1 g/dl (6.4-8.2)
[2022-03-21] MEDS: DOXAZOSIN MESYLATE 1 MG TABLET PO SCH (09:25)
[2022-03-22] MEDS: LEVOTHYROXINE NA 75 MCG TABLET (FP) PO SCH (06:16)
[2022-03-22] MEDS: INSULIN SLIDING SCALE (NOVOLOG) 1 VIAL SQ SCH ×4 (06:16→22:29)
[2022-03-22] MEDS: HEPARIN NA (PORCINE) 5,000 UNITS/ML 1ML VIAL SQ SCH ×3 (06:16→22:30)
[2022-03-22] MEDS: INSULIN (LEVEMIR) 100 UNITS/ML UNITS SQ SCH ×2 (07:48→22:28)
[2022-03-22] MEDS: TAMSULOSIN HCL 0.4 MG CAP PO SCH (09:56)
[2022-03-22] MEDS: FOLIC ACID 1 MG TABLET (FP) PO SCH (09:56)
[2022-03-22] MEDS: CYANOCOBALAMIN (VITAMIN B-12) 1000 MCG/1 ML VIAL IM SCH (09:57)
[2022-03-22] MEDS: DOXAZOSIN MESYLATE 1 MG TABLET PO SCH (09:58)
[2022-03-22] MEDS ORDERED: ALPRAZolam 1 MG TABLET PO PRN (17:35)
[2022-03-22] MEDS ORDERED: INSULIN (NOVOLOG) ASPART 100 UNITS/ML 10ML VIAL ONE (22:24)
[2022-03-23] MEDS: LEVOTHYROXINE NA 75 MCG TABLET (FP) PO SCH (06:30)
[2022-03-23] MEDS: HEPARIN NA (PORCINE) 5,000 UNITS/ML 1ML VIAL SQ SCH ×3 (06:30→21:36)
[2022-03-23] MEDS: INSULIN (LEVEMIR) 100 UNITS/ML UNITS SQ SCH ×2 (06:32→21:32)
[2022-03-23] MEDS: INSULIN SLIDING SCALE (NOVOLOG) 1 VIAL SQ SCH ×4 (06:33→21:34)
[2022-03-23] MEDS: FOLIC ACID 1 MG TABLET (FP) PO SCH (11:26)
[2022-03-23] MEDS: CYANOCOBALAMIN (VITAMIN B-12) 1000 MCG/1 ML VIAL IM SCH (11:26)
[2022-03-23] MEDS: TAMSULOSIN HCL 0.4 MG CAP PO SCH (11:26)
[2022-03-24] MEDS: HEPARIN NA (PORCINE) 5,000 UNITS/ML 1ML VIAL SQ SCH ×2 (06:08→13:11)
[2022-03-24] MEDS: INSULIN (LEVEMIR) 100 UNITS/ML UNITS SQ SCH (06:10)
[2022-03-24] MEDS: INSULIN SLIDING SCALE (NOVOLOG) 1 VIAL SQ SCH ×3 (06:12→16:41)
[2022-03-24] MEDS: LEVOTHYROXINE NA 75 MCG TABLET (FP) PO SCH (06:17)
[2022-03-24] MEDS: TAMSULOSIN HCL 0.4 MG CAP PO SCH (08:12)
[2022-03-24] MEDS: CYANOCOBALAMIN (VITAMIN B-12) 1000 MCG/1 ML VIAL IM SCH (10:14)
[2022-03-24] MEDS: FOLIC ACID 1 MG TABLET (FP) PO SCH (10:15)
[2022-03-24 18:56] VITALS: BP 116/88; PULSE 98; TEMP 98.7
== END 2022-03-24 19:21 | DRG 637 ==
LOC: JER 09:45 → JERBED 12:23 → JICU 13:36 → J5S 03-12 21:13 → J7W 03-13 17:51
PROVIDERS: ADMIT Internal Medicine Pulmonary Disease; ATTEND Family Medicine
DX: E11.00 Type 2 diabetes mellitus with hyperosmolarity without nonketotic hyperglycemic-hyperosmolar coma (NKHHC) (principal); G92.8 Other toxic encephalopathy; J69.0 Pneumonitis due to inhalation of food and vomit; N17.9 Acute kidney failure, unspecified; E87.1 Hypo-osmolality and hyponatremia; I69.351 Hemiplegia and hemiparesis following cerebral infarction affecting right dominant side; E03.9 Hypothyroidism, unspecified; I25.10 Atherosclerotic heart disease of native coronary artery without angina pectoris; E78.5 Hyperlipidemia, unspecified; Z79.4 Long term (current) use of insulin; E86.0 Dehydration; F17.210 Nicotine dependence, cigarettes, uncomplicated; E83.39 Other disorders of phosphorus metabolism; R31.0 Gross hematuria; F10.10 Alcohol abuse, uncomplicated; E11.42 Type 2 diabetes mellitus with diabetic polyneuropathy
CPT/HCPCS: 0241U-QW; 36415; 36600; 70450-TC; 71045-TC-FY; 74230-TC-FY; 76775-TC; 80048; 80053; 80307; 81003; 82010; 82140; 82553; 82570; 82607; 82746; 82803; 82962; 83036; 83540; 83550; 83605; 83690; 83735; 84100; 84156; 84300; 84425; 84439; 84443; 84484; 85025; 85027; 85610; 85730; 87040; 87086; 92611-GN; 93005; 93010; 97116-GP; 97162-GP; 99291; C9803-CS; J1644; U0003; U0005

== ENCOUNTER 2022-05-22 11:00 | Inpatient (IN) | payer OTHER ==
[2022-05-22] MEDS ORDERED: CEFEPIME HCL/D5W 2 GM/50 ML BAG IVPB ONE (14:03)
[2022-05-22 14:04] LABS: BASO % 0.9 % (0-2.0); EOS % 1.4 % (0-4.5); HEMATOCRIT 35.1 % (35.4-49); HEMOGLOBIN 11.4 GM/dL (11.7-16.9); LYMPH % 25.1 % (8-40); MCH 29.7 pg (25.7-33.7); MCHC 32.4 g/dl (32.0-35.9); MEAN CELL VOLUME 91.6 fl (80-96); MEAN PLT VOLUME 9.1 fl (7.5-11.1); MONO % 7.8 % (3.8-10.2); NEUT % 64.8 % (42.8-82.8); PLATELET COUNT 223 10^3/uL (134-434); RBC 3.84 M/mm3 (4.00-5.60); RDW 14.4 % (11.9-15.9); WHITE BLOOD COUNT 4.3 K/mm3 (4.0-10.0)
[2022-05-22] MEDS ORDERED: VANCOMYCIN 1 GM in D5W (PRE-DOCKED) 1,000 MG/250 ML IVPB ONE (14:04)
[2022-05-22 14:06] LABS: INR 0.93 (0.83-1.09); PROTHROMBIN TIME (PATIENT) 10.7 SEC (9.7-13.0)
[2022-05-22 14:09] LABS: ACTIVATED PTT 27.8 SECONDS (25.2-36.5)
[2022-05-22 14:17] LABS: ALBUMIN 3.6 g/dl (3.4-5.0); CALCIUM 9.2 mg/dL (8.5-10.1)
[2022-05-22 14:21] LABS: CREATININE 0.9 mg/dL (0.55-1.3)
[2022-05-22 14:22] LABS: BILIRUBIN,TOTAL 0.9 mg/dL (0.2-1); TOT PROT 7.8 g/dl (6.4-8.2)
[2022-05-22] MEDS ORDERED: CEFEPIME 2 GM/100 ML BAG IVPB ONE (14:45)
[2022-05-22] MEDS ORDERED: VANCOMYCIN/WATER FOR INJ (PEG) 1,000 MG/200 ML BAG IVPB ONE (14:45)
[2022-05-22 14:51] LABS: ERYTHROCYTE SEDIMENTATION RATE 38 mm/hr (0-20)
[2022-05-22] MEDS: CEFEPIME 1 GM in DEXTROSE 5%-WATER - 50 ML IVPB SCH (19:27)
[2022-05-22 21:07] VITALS: BMI 25.9
[2022-05-22] MEDS: INSULIN (NOVOLOG) ASPART 100 UNITS/ML 10ML VIAL SQ SCH (21:46)
[2022-05-22] MEDS: INSULIN (LEVEMIR) 100 UNITS/ML UNITS SQ SCH (21:47)
[2022-05-22] MEDS: ATORVASTATIN CA 80 MG TABLET (FP) PO SCH (21:48)
[2022-05-22] MEDS: HEPARIN NA (PORCINE) 5,000 UNITS/ML 1ML VIAL SQ SCH (21:53)
[2022-05-23] MEDS: CEFEPIME 1 GM in DEXTROSE 5%-WATER - 50 ML IVPB SCH ×4 (02:01→13:38)
[2022-05-23] MEDS: INSULIN (LEVEMIR) 100 UNITS/ML UNITS SQ SCH ×2 (06:22→21:44)
[2022-05-23] MEDS: HEPARIN NA (PORCINE) 5,000 UNITS/ML 1ML VIAL SQ SCH ×3 (06:22→21:44)
[2022-05-23] MEDS: LEVOTHYROXINE NA 75 MCG TABLET (FP) PO SCH (06:24)
[2022-05-23] MEDS: INSULIN (NOVOLOG) ASPART 100 UNITS/ML 10ML VIAL SQ SCH ×4 (06:30→21:43)
[2022-05-23] MEDS ORDERED: ESCITALOPRAM OXALATE 10 MG TABLET ONE (09:30)
[2022-05-23] MEDS: TAMSULOSIN HCL 0.4 MG CAP PO SCH (09:37)
[2022-05-23] MEDS: ASPIRIN COATED 81 MG TABLET.EC PO SCH (09:37)
[2022-05-23] MEDS: ESCITALOPRAM OXALATE 20 MG TABLET PO SCH (09:39)
[2022-05-23] MEDS: DOXAZOSIN MESYLATE 1 MG TABLET PO SCH (10:19)
[2022-05-23] MEDS ORDERED: CEFEPIME 1 GM in DEXTROSE 5%-WATER 100 ML IVPB SCH (11:15)
[2022-05-23] MEDS: CLINDAMYCIN 600MG PREMIX IVPB 600 MG/50 ML BAG IVPB SCH ×2 (11:49→17:45)
[2022-05-23 12:23] LABS: BASO % 1.1 % (0-2.0); EOS % 2.5 % (0-4.5); HEMATOCRIT 32.3 % (35.4-49); HEMOGLOBIN 10.9 GM/dL (11.7-16.9); MCH 30.8 pg (25.7-33.7); MCHC 33.9 g/dl (32.0-35.9); MEAN CELL VOLUME 90.7 fl (80-96); MEAN PLT VOLUME 9.8 fl (7.5-11.1); MONO % 9.2 % (3.8-10.2); NEUT % 58.2 % (42.8-82.8); PLATELET COUNT 198 10^3/uL (134-434); RBC 3.56 M/mm3 (4.00-5.60); RDW 14.5 % (11.9-15.9); WHITE BLOOD COUNT 3.2 K/mm3 (4.0-10.0)
[2022-05-23 13:57] LABS: BLOOD UREA NITROGEN 18.7 mg/dL (7-18)
[2022-05-23 14:02] LABS: BILIRUBIN,TOTAL 0.5 mg/dL (0.2-1); CALCIUM 8.8 mg/dL (8.5-10.1); TOT PROT 6.8 g/dl (6.4-8.2)
[2022-05-23 14:03] LABS: ALBUMIN 3.1 g/dl (3.4-5.0)
[2022-05-23 14:07] LABS: CREATININE 0.9 mg/dL (0.55-1.3)
[2022-05-23] MEDS: CEFEPIME 1 GM in DEXTROSE 5%-WATER 100 ML IVPB SCH (17:45)
[2022-05-23 21:15] VITALS: RESP 20
[2022-05-23] MEDS: ATORVASTATIN CA 80 MG TABLET (FP) PO SCH (21:43)
[2022-05-24] MEDS: CLINDAMYCIN 600MG PREMIX IVPB 600 MG/50 ML BAG IVPB SCH ×3 (02:23→17:53)
[2022-05-24] MEDS: CEFEPIME 1 GM in DEXTROSE 5%-WATER 100 ML IVPB SCH ×3 (03:07→17:53)
[2022-05-24 04:33] LABS: EPI CELLS 2 /uL (0-25.1); HYALINE CASTS 0 /uL (0-3.1); PH,URINE 6.5 (5.0-8.0); URINE APPEARANCE CLEAR; URINE BACTERIA 0 /uL (0-1359); URINE BILIRUBIN NEGATIVE (NEGATIVE); URINE COLOR YELLOW; URINE GLUCOSE (UA) TRACE (NEGATIVE); URINE KETONE NEGATIVE (NEGATIVE); URINE LEUK ESTERASE NEGATIVE (NEGATIVE); URINE NITRITE NEGATIVE (NEGATIVE); URINE PROTEIN 2+ (NEGATIVE); URINE RBC 8 /uL (0-23.9); URINE UROBILINOGEN 0.2 mg/dL (0.2-1.0); URINE WBC 1 /uL (0-25.8)
[2022-05-24] MEDS: INSULIN (LEVEMIR) 100 UNITS/ML UNITS SQ SCH ×2 (06:57→21:15)
[2022-05-24] MEDS: INSULIN (NOVOLOG) ASPART 100 UNITS/ML 10ML VIAL SQ SCH ×4 (06:57→21:15)
[2022-05-24] MEDS: LEVOTHYROXINE NA 75 MCG TABLET (FP) PO SCH (06:57)
[2022-05-24] MEDS: HEPARIN NA (PORCINE) 5,000 UNITS/ML 1ML VIAL SQ SCH ×3 (06:57→21:14)
[2022-05-24] MEDS ORDERED: ESCITALOPRAM OXALATE 10 MG TABLET ONE (09:19)
[2022-05-24] MEDS: THIAMINE HCL 100 MG TABLET (FP) PO SCH ×3 (09:48→21:14)
[2022-05-24] MEDS: ASPIRIN COATED 81 MG TABLET.EC PO SCH (09:48)
[2022-05-24] MEDS: DOXAZOSIN MESYLATE 1 MG TABLET PO SCH (09:48)
[2022-05-24] MEDS: TAMSULOSIN HCL 0.4 MG CAP PO SCH (09:48)
[2022-05-24] MEDS: FOLIC ACID 1 MG TABLET (FP) PO SCH (09:49)
[2022-05-24] MEDS: ESCITALOPRAM OXALATE 20 MG TABLET PO SCH (09:49)
[2022-05-24] MEDS: BACITRACIN 15 GM TUBE TOPICAL OINTMENT TP SCH (17:53)
[2022-05-24] MEDS ORDERED: INSULIN (NOVOLOG) ASPART 100 UNITS/ML 10ML VIAL ONE (21:08)
[2022-05-24] MEDS: ATORVASTATIN CA 80 MG TABLET (FP) PO SCH (21:14)
[2022-05-24] MEDS ORDERED: LEVOTHYROXINE NA 100 MCG TABLET (FP) PO SCH (21:20)
[2022-05-24] MEDS: INSULIN SLIDING SCALE (NOVOLOG) 1 VIAL SQ SCH (21:23)
[2022-05-24] MEDS ORDERED: INSULIN (LEVEMIR) 100 UNITS/ML UNITS SQ SCH (22:00)
[2022-05-25] MEDS: CEFEPIME 1 GM in DEXTROSE 5%-WATER 100 ML IVPB SCH ×2 (02:06→10:15)
[2022-05-25] MEDS: CLINDAMYCIN 600MG PREMIX IVPB 600 MG/50 ML BAG IVPB SCH ×2 (02:06→10:15)
[2022-05-25] MEDS: INSULIN SLIDING SCALE (NOVOLOG) 1 VIAL SQ SCH ×2 (06:35→11:39)
[2022-05-25] MEDS: HEPARIN NA (PORCINE) 5,000 UNITS/ML 1ML VIAL SQ SCH (06:35)
[2022-05-25 06:48] VITALS: BP 150/89; PULSE 58; TEMP 98
[2022-05-25] MEDS ORDERED: INSULIN (LEVEMIR) 100 UNITS/ML UNITS SQ SCH (07:00)
[2022-05-25] MEDS ORDERED: ESCITALOPRAM OXALATE 10 MG TABLET ONE (09:55)
[2022-05-25] MEDS: THIAMINE HCL 100 MG TABLET (FP) PO SCH (10:14)
[2022-05-25] MEDS: BACITRACIN 15 GM TUBE TOPICAL OINTMENT TP SCH (10:14)
[2022-05-25] MEDS: ASPIRIN COATED 81 MG TABLET.EC PO SCH (10:14)
[2022-05-25] MEDS: TAMSULOSIN HCL 0.4 MG CAP PO SCH (10:15)
[2022-05-25] MEDS: DOXAZOSIN MESYLATE 1 MG TABLET PO SCH (10:15)
[2022-05-25] MEDS: ESCITALOPRAM OXALATE 20 MG TABLET PO SCH (10:21)
[2022-05-25] MEDS: FOLIC ACID 1 MG TABLET (FP) PO SCH (10:21)
[2022-05-25 11:15] LABS: HEMOGLOBIN 12.4 GM/dL (11.7-16.9); MCH 30.9 pg (25.7-33.7); MCHC 33.6 g/dl (32.0-35.9); MEAN CELL VOLUME 91.9 fl (80-96); MEAN PLT VOLUME 9.2 fl (7.5-11.1); PLATELET COUNT 208 10^3/uL (134-434); RBC 4.02 M/mm3 (4.00-5.60); RDW 14.7 % (11.9-15.9); WHITE BLOOD COUNT 3.3 K/mm3 (4.0-10.0)
[2022-05-25 11:56] LABS: BLOOD UREA NITROGEN 24.6 mg/dL (7-18); CALCIUM 9.4 mg/dL (8.5-10.1)
[2022-05-25 11:59] LABS: CREATININE 1.2 mg/dL (0.55-1.3)
== END 2022-05-25 14:29 | disposition home or self-care (01) | DRG 603 ==
LOC: JER 11:00 → JERBED 14:10 → J8W 20:32
PROVIDERS: ADMIT Family Medicine; ATTEND Family Medicine
DX: L03.031 Cellulitis of right toe (principal); E03.9 Hypothyroidism, unspecified; E11.21 Type 2 diabetes mellitus with diabetic nephropathy; I25.10 Atherosclerotic heart disease of native coronary artery without angina pectoris; E78.5 Hyperlipidemia, unspecified; Z86.73 Personal history of transient ischemic attack (TIA), and cerebral infarction without residual deficits; I10 Essential (primary) hypertension; F10.10 Alcohol abuse, uncomplicated; E11.628 Type 2 diabetes mellitus with other skin complications; L08.89 Other specified local infections of the skin and subcutaneous tissue; R41.0 Disorientation, unspecified; E11.40 Type 2 diabetes mellitus with diabetic neuropathy, unspecified
CPT/HCPCS: 36415; 73630-TC-RT-FY; 73700-TC-RT; 80048; 80053; 81003; 82962; 83036; 84443; 85025; 85027; 85610; 85651; 85730; 86140; 86850; 86900; 86901; 87040; 93005; 93010; 93971-TC; 99285-25; C9803-CS; J1644; U0003; U0005

== ENCOUNTER 2022-07-25 14:27 | Inpatient (IN) | payer OTHER ==
[2022-07-25] MEDS ORDERED: DEXTROSE 50%-WATER 25 GM/50 ML DISP.SYRIN ONE ×2 (14:53→23:03)
[2022-07-25] MEDS ORDERED: MIDAZOLAM HCL 2 MG/2 ML SINGLE DOSE VIAL ONE ×2 (14:57→15:03)
[2022-07-25] MEDS ORDERED: SODIUM CHLORIDE 1,000 ML IV SCH (15:00)
[2022-07-25] MEDS ORDERED: LORazepam 2 MG/ML SDV VIAL IVPUSH ONE ×2 (15:00)
[2022-07-25] MEDS ORDERED: RAPID SEQUENCE INTUBATION KIT NR ONE (15:20)
[2022-07-25 15:27] LABS: BASO % 0.2 % (0-2.0); EOS % 0.5 % (0-4.5); HEMATOCRIT 37.3 % (35.4-49); HEMOGLOBIN 12.4 GM/dL (11.7-16.9); LYMPH % 13.1 % (8-40); MCH 30.2 pg (25.7-33.7); MCHC 33.1 g/dl (32.0-35.9); MEAN CELL VOLUME 91.2 fl (80-96); MEAN PLT VOLUME 9.3 fl (7.5-11.1); MONO % 7.3 % (3.8-10.2); NEUT % 78.9 % (42.8-82.8); PLATELET COUNT 239 10^3/uL (134-434); RBC 4.09 M/mm3 (4.00-5.60); RDW 13.5 % (11.9-15.9); WHITE BLOOD COUNT 8.7 K/mm3 (4.0-10.0)
[2022-07-25] MEDS ORDERED: PROPOFOL 20 ML ONE (15:38)
[2022-07-25 15:40] LABS: ACTIVATED PTT 28.5 SECONDS (25.2-36.5); INR 0.89 (0.83-1.09); PROTHROMBIN TIME (PATIENT) 10.2 SEC (9.7-13.0)
[2022-07-25] MEDS ORDERED: PROPOFOL 1,000,000 MCG/100 ML VIAL ONE (15:40)
[2022-07-25] MEDS ORDERED: levETIRAcetam 500 MG/5 ML INJECTION VIAL IVPB ONE ×4 (15:41→22:19)
[2022-07-25 15:55] LABS: CHLORIDE 106 mmol/L (98-107); SODIUM 142 mmol/L (136-145)
[2022-07-25 15:56] LABS: CALCIUM 9.4 mg/dL (8.5-10.1)
[2022-07-25 15:57] LABS: ALBUMIN 3.4 g/dl (3.4-5.0); ANION GAP 8 MMOL/L (8-16); CO2 27 mmol/L (21-32)
[2022-07-25 15:58] LABS: BLOOD UREA NITROGEN 19.7 mg/dL (7-18); GLUCOSE,RANDOM 218 mg/dL (74-106)
[2022-07-25 16:00] LABS: CREATININE 1.2 mg/dL (0.55-1.3); SGOT/AST 63 U/L (15-37); SGPT/ALT 130 U/L (13-61)
[2022-07-25 16:01] LABS: TRIGLYCERIDES 120 mg/dL (0-150)
[2022-07-25 16:02] LABS: CHOLESTEROL 194 mg/dL (50-200); TOT PROT 7.6 g/dl (6.4-8.2)
[2022-07-25 16:03] LABS: BILIRUBIN,TOTAL 0.4 mg/dL (0.2-1); LDL CHOLESTEROL (ONLY SJRH) 101 mg/dL (5-100)
[2022-07-25 16:04] LABS: ALK PHOS 214 U/L (45-117)
[2022-07-25 16:05] LABS: HDL CHOLESTEROL 75 mg/dL (40-60)
[2022-07-25] MEDS ORDERED: CEFTRIAXONE 1 GM in DEXTROSE 5%-WATER - 100 ML IVPB ONE (16:32)
[2022-07-25] MEDS ORDERED: AZITHROMYCIN IVPB 500 MG in DEXTROSE 5%-WATER - 250 ML IVPB ONE (16:33)
[2022-07-25 16:39] LABS: ARTERIAL BLD GAS O2 SATURATION 96.4 % (95-98); ARTERIAL BLOOD GAS BASE EXCESS -2.8 mmol/L (-2-2); ARTERIAL BLOOD GAS PO2 100.6 mmHg (80-100); ARTERIAL BLOOD GAS pH 7.238 (7.350-7.450)
[2022-07-25 16:40] LABS: ALLENS TEST POSITIVE; VENT MODE AC; VENT RATE 16
[2022-07-25] MEDS: PROPOFOL 1,000,000 MCG/100 ML VIAL IVPB SCH (17:02)
[2022-07-25] MEDS ORDERED: MIDAZOLAM HCL 2 MG/2 ML SINGLE DOSE VIAL IVPUSH ONE (17:04)
[2022-07-25] MEDS ORDERED: CEFTRIAXONE 1 GM/50 ML BAG ONE (17:14)
[2022-07-25] MEDS ORDERED: AZITHROMYCIN IVPB 500 MG/250 ML BAG IVPB ONE (17:14)
[2022-07-25] MEDS ORDERED: LABETALOL HCL 5 MG/1 ML (100MG/20 ML VIAL) IVPUSH ONE (17:24)
[2022-07-25] MEDS ORDERED: DEXTROSE 5%-LACTATED RINGERS 1,000 ML IV SCH (17:30)
[2022-07-25] MEDS ORDERED: MIDAZOLAM IN 0.9 % SOD.CHLORID 1 MG/1 ML PLAST..BAG ONE (17:46)
[2022-07-25 17:52] LABS: EPI CELLS 1 /uL (0-25.1); HYALINE CASTS 0 /uL (0-3.1); URINE APPEARANCE CLEAR; URINE BACTERIA 5 /uL (0-1359); URINE BILIRUBIN NEGATIVE (NEGATIVE); URINE COLOR YELLOW; URINE GLUCOSE (UA) NEGATIVE (NEGATIVE); URINE KETONE NEGATIVE (NEGATIVE); URINE LEUK ESTERASE NEGATIVE (NEGATIVE); URINE NITRITE NEGATIVE (NEGATIVE); URINE PROTEIN 2+ (NEGATIVE); URINE RBC 9 /uL (0-23.9); URINE UROBILINOGEN 0.2 mg/dL (0.2-1.0); URINE WBC 0 /uL (0-25.8)
[2022-07-25] MEDS ORDERED: ALBUTEROL SO4 2.5/IPRATROPIUM 0.5 INH SOL 3 ML VIAL.NEB. NEB ONE ×2 (17:58→18:10)
[2022-07-25 18:02] LABS: LACTIC ACID 5.5 mmol/L (0.4-2.0)
[2022-07-25 18:08] LABS: OPIATES, URI NEGATIVE (NEGATIVE); PHENCYCLIDINE,URINE NEGATIVE (NEGATIVE); URINE BARBITURATES NEGATIVE (NEGATIVE)
[2022-07-25 18:09] LABS: METHADONE, UR NEGATIVE (NEGATIVE)
[2022-07-25] MEDS: MIDAZOLAM IN 0.9 % SOD.CHLORID 100 MG/100 ML PLAST..BAG IVPB SCH (18:09)
[2022-07-25 18:16] LABS: COCAINE, UR NEGATIVE (NEGATIVE); URINE AMPHETAMINES NEGATIVE (NEGATIVE); URINE BENZODIAZEPINES POSITIVE (NEGATIVE)
[2022-07-25] MEDS: ATORVASTATIN CA 40 MG TABLET (FP) PO SCH (22:12)
[2022-07-25] MEDS: MUPIROCIN 2% TOPICAL OINTMENT FOR DECOLONIZATION NS SCH (23:00)
[2022-07-25] MEDS ORDERED: DEXTROSE 50%-WATER - 25 GM/50 ML VIAL IVPUSH ONE (23:04)
[2022-07-25] MEDS: INSULIN SLIDING SCALE (NOVOLOG) 1 VIAL SQ SCH (23:35)
[2022-07-25] MEDS: levETIRAcetam 500 MG/5 ML INJECTION VIAL IVPB SCH (23:35)
[2022-07-26 00:04] LABS: LACTIC ACID 2.2 mmol/L (0.4-2.0)
[2022-07-26] MEDS: INSULIN SLIDING SCALE (NOVOLOG) 1 VIAL SQ SCH ×5 (02:04→21:20)
[2022-07-26] MEDS ORDERED: INSULIN (NOVOLOG) ASPART 100 UNITS/ML 10ML VIAL SQ ONE ×2 (06:37→09:05)
[2022-07-26 06:39] LABS: ARTERIAL BLD GAS O2 SATURATION 96.8 % (95-98); ARTERIAL BLOOD GAS BASE EXCESS 0 mmol/L (-2-2); ARTERIAL BLOOD GAS PO2 87.4 mmHg (80-100); ARTERIAL BLOOD GAS pH 7.422 (7.350-7.450)
[2022-07-26 06:40] LABS: ALLENS TEST POSITIVE
[2022-07-26 06:41] LABS: VENT MODE A/C; VENT RATE 16
[2022-07-26] MEDS: LACTATED RINGERS SOLUTION 1,000 ML/1,000 ML INFUS.BAG IV SCH (06:51)
[2022-07-26] MEDS ORDERED: DEXTROSE 50%-WATER - 25 GM/50 ML VIAL IVPUSH PRN (07:24)
[2022-07-26 07:29] LABS: BASO % 0.2 % (0-2.0); EOS % 0.1 % (0-4.5); HEMATOCRIT 32.3 % (35.4-49); HEMOGLOBIN 10.7 GM/dL (11.7-16.9); LYMPH % 10.3 % (8-40); MCH 30.4 pg (25.7-33.7); MCHC 33.1 g/dl (32.0-35.9); MEAN CELL VOLUME 91.6 fl (80-96); MEAN PLT VOLUME 9.6 fl (7.5-11.1); MONO % 6.8 % (3.8-10.2); NEUT % 82.6 % (42.8-82.8); PLATELET COUNT 194 10^3/uL (134-434); RBC 3.53 M/mm3 (4.00-5.60); RDW 13.7 % (11.9-15.9)
[2022-07-26 07:45] LABS: CHLORIDE 104 mmol/L (98-107); SODIUM 138 mmol/L (136-145)
[2022-07-26 07:53] LABS: ANION GAP 11 MMOL/L (8-16); BLOOD UREA NITROGEN 18.7 mg/dL (7-18); CO2 23 mmol/L (21-32); MAGNESIUM 1.5 mg/dL (1.8-2.4)
[2022-07-26 07:55] LABS: PHOSPHOROUS 2.8 mg/dL (2.5-4.9); SGPT/ALT 78 U/L (13-61)
[2022-07-26 07:56] LABS: BILIRUBIN,TOTAL 0.3 mg/dL (0.2-1); CREATININE 1.3 mg/dL (0.55-1.3); SGOT/AST 36 U/L (15-37)
[2022-07-26] MEDS ORDERED: INSULIN SLIDING SCALE (NOVOLOG) 1 VIAL SQ SCH (08:00)
[2022-07-26] MEDS ORDERED: MAGNESIUM SULF 50% (8.12 MEQ/2 ML-1 GM VIAL) IVPB ONE (08:03)
[2022-07-26 08:31] LABS: ALBUMIN 2.3 g/dl (3.4-5.0); ALK PHOS 146 U/L (45-117); CALCIUM 7.8 mg/dL (8.5-10.1); GLUCOSE,RANDOM 740 mg/dL (74-106); TOT PROT 5.3 g/dl (6.4-8.2)
[2022-07-26] MEDS: ENOXAPARIN NA (PORCINE) 40 MG/0.4 ML DISP.SYRIN SQ SCH (09:04)
[2022-07-26] MEDS: PANTOPRAZOLE SODIUM 40 MG VIAL IVPUSH SCH (09:04)
[2022-07-26] MEDS: ENALAPRIL MALEATE 10 MG TABLET PO SCH (09:04)
[2022-07-26] MEDS: MUPIROCIN 2% TOPICAL OINTMENT FOR DECOLONIZATION NS SCH ×2 (09:04→23:36)
[2022-07-26] MEDS: ASPIRIN COATED 81 MG TABLET.EC PO SCH ×2 (09:04→09:07)
[2022-07-26] MEDS: levETIRAcetam 500 MG/5 ML INJECTION VIAL IVPB SCH ×2 (09:50→23:36)
[2022-07-26] MEDS ORDERED: ESCITALOPRAM OXALATE 10 MG TABLET PO SCH (10:00)
[2022-07-26] MEDS: LEVOTHYROXINE SODIUM 100 MCG VIAL IVPUSH SCH (10:23)
[2022-07-26] MEDS: PROPOFOL 1,000,000 MCG/100 ML VIAL IVPB SCH (12:44)
[2022-07-26 13:17] LABS: CALCIUM 8.5 mg/dL (8.5-10.1)
[2022-07-26 13:21] LABS: CREATININE 1.2 mg/dL (0.55-1.3)
[2022-07-26] MEDS ORDERED: ACETAMINOPHEN 1000 MG/100 ML BAG IVPB ONE (15:45)
[2022-07-26] MEDS ORDERED: VANCOMYCIN 1 GM/200 ML PREMIX BAG (RESTRICTED TO ID ONLY) IVPB ONE (16:32)
[2022-07-26] MEDS ORDERED: PIPERACILLIN/TAZOB 4.5 GM 4.5 GM in DEXTROSE 5%-WATER 100 ML IVPB ONE (16:32)
[2022-07-26 17:15] LABS: EPI CELLS 1 /uL (0-25.1); HYALINE CASTS 2 /uL (0-3.1); PH,URINE 5.5 (5.0-8.0); URINE APPEARANCE CLOUDY; URINE BACTERIA 32 /uL (0-1359); URINE BILIRUBIN NEGATIVE (NEGATIVE); URINE COLOR YELLOW; URINE GLUCOSE (UA) NEGATIVE (NEGATIVE); URINE KETONE NEGATIVE (NEGATIVE); URINE LEUK ESTERASE 1+ (NEGATIVE); URINE NITRITE NEGATIVE (NEGATIVE); URINE PROTEIN 2+ (NEGATIVE); URINE RBC 521 /uL (0-23.9); URINE UROBILINOGEN 0.2 mg/dL (0.2-1.0); URINE WBC 558 /uL (0-25.8)
[2022-07-26] MEDS ORDERED: DEXTROSE 50%-WATER 25 GM/50 ML DISP.SYRIN ONE (18:55)
[2022-07-26] MEDS: MIDAZOLAM IN 0.9 % SOD.CHLORID 100 MG/100 ML PLAST..BAG IVPB SCH (20:27)
[2022-07-26] MEDS: CHLORHEXIDINE GLUCONATE 4% CLEANSER FOR DECOLONIZATION TP SCH (23:36)
[2022-07-26] MEDS: ATORVASTATIN CA 40 MG TABLET (FP) PO SCH (23:36)
[2022-07-27] MEDS: INSULIN SLIDING SCALE (NOVOLOG) 1 VIAL SQ SCH ×6 (00:20→21:46)
[2022-07-27] MEDS: LACTATED RINGERS SOLUTION 1,000 ML/1,000 ML INFUS.BAG IV SCH (07:34)
[2022-07-27 07:37] LABS: BASO % 1.1 % (0-2.0); EOS % 1.4 % (0-4.5); HEMATOCRIT 30.9 % (35.4-49); HEMOGLOBIN 10.4 GM/dL (11.7-16.9); LYMPH % 10.5 % (8-40); MCH 30.3 pg (25.7-33.7); MCHC 33.7 g/dl (32.0-35.9); PLATELET COUNT 166 10^3/uL (134-434); RBC 3.44 M/mm3 (4.00-5.60); RDW 13.8 % (11.9-15.9)
[2022-07-27 08:13] LABS: CALCIUM 8.2 mg/dL (8.5-10.1)
[2022-07-27 08:14] LABS: ALBUMIN 2.3 g/dl (3.4-5.0); BLOOD UREA NITROGEN 16.2 mg/dL (7-18)
[2022-07-27 08:19] LABS: BILIRUBIN,TOTAL 0.5 mg/dL (0.2-1); TOT PROT 5.6 g/dl (6.4-8.2)
[2022-07-27] MEDS: levETIRAcetam 500 MG/5 ML INJECTION VIAL IVPB SCH ×2 (09:26→23:07)
[2022-07-27] MEDS: PANTOPRAZOLE SODIUM 40 MG VIAL IVPUSH SCH (09:26)
[2022-07-27] MEDS: ENOXAPARIN NA (PORCINE) 40 MG/0.4 ML DISP.SYRIN SQ SCH (09:26)
[2022-07-27] MEDS: LEVOTHYROXINE SODIUM 100 MCG VIAL IVPUSH SCH (09:27)
[2022-07-27] MEDS: ENALAPRIL MALEATE 10 MG TABLET PO SCH (09:28)
[2022-07-27] MEDS: MUPIROCIN 2% TOPICAL OINTMENT FOR DECOLONIZATION NS SCH ×2 (09:28→23:07)
[2022-07-27] MEDS: ASPIRIN COATED 81 MG TABLET.EC PO SCH (11:10)
[2022-07-27 14:37] LABS: PHOSPHOROUS 2.6 mg/dL (2.5-4.9)
[2022-07-27] MEDS: PIPERACILLIN/TAZOB 3.375 GM 3.375 GM in DEXTROSE 5%-WATER - 50 ML IVPB SCH (17:23)
[2022-07-27] MEDS: PROPOFOL 1,000,000 MCG/100 ML VIAL IVPB SCH (17:23)
[2022-07-27] MEDS: MIDAZOLAM IN 0.9 % SOD.CHLORID 100 MG/100 ML PLAST..BAG IVPB SCH (18:09)
[2022-07-27] MEDS ORDERED: ACETAMINOPHEN 325 MG TABLET (FP) PO PRN (21:43)
[2022-07-27] MEDS: ATORVASTATIN CA 40 MG TABLET (FP) PO SCH (23:07)
[2022-07-27] MEDS: CHLORHEXIDINE GLUCONATE 4% CLEANSER FOR DECOLONIZATION TP SCH (23:07)
[2022-07-28] MEDS: INSULIN SLIDING SCALE (NOVOLOG) 1 VIAL SQ SCH ×6 (01:30→21:45)
[2022-07-28] MEDS: PIPERACILLIN/TAZOB 3.375 GM 3.375 GM in DEXTROSE 5%-WATER - 50 ML IVPB SCH ×3 (04:06→17:00)
[2022-07-28] MEDS: ENOXAPARIN NA (PORCINE) 40 MG/0.4 ML DISP.SYRIN SQ SCH (09:00)
[2022-07-28] MEDS: PANTOPRAZOLE SODIUM 40 MG VIAL IVPUSH SCH (09:01)
[2022-07-28] MEDS: FUROSEMIDE INJECTION 100 MG in SODIUM CHLORIDE 90 ML IVPB SCH (09:01)
[2022-07-28] MEDS: LEVOTHYROXINE SODIUM 100 MCG VIAL IVPUSH SCH (09:01)
[2022-07-28] MEDS: PROPOFOL 1,000,000 MCG/100 ML VIAL IVPB SCH ×3 (09:02→21:45)
[2022-07-28] MEDS: AMINO ACIDS/PROTEIN HYDROLYS 30 ML LIQUID.PKT PO SCH (09:02)
[2022-07-28] MEDS: ASPIRIN 81 MG CHEWABLE TABLETS PO SCH (09:02)
[2022-07-28] MEDS: MUPIROCIN 2% TOPICAL OINTMENT FOR DECOLONIZATION NS SCH ×2 (09:03→21:45)
[2022-07-28] MEDS: ENALAPRIL MALEATE 10 MG TABLET PO SCH (09:03)
[2022-07-28] MEDS: levETIRAcetam 500 MG/5 ML INJECTION VIAL IVPB SCH ×2 (09:03→21:48)
[2022-07-28] MEDS: MIDAZOLAM IN 0.9 % SOD.CHLORID 100 MG/100 ML PLAST..BAG IVPB SCH (17:45)
[2022-07-28] MEDS ORDERED: ACETAMINOPHEN 1000 MG/100 ML BAG IVPB ONE (18:16)
[2022-07-28] MEDS ORDERED: ACETAMINOPHEN INJECTION 100 ML IVPB ONE (18:19)
[2022-07-28] MEDS: CHLORHEXIDINE GLUCONATE 4% CLEANSER FOR DECOLONIZATION TP SCH (21:45)
[2022-07-28] MEDS: ATORVASTATIN CA 40 MG TABLET (FP) PO SCH (21:48)
[2022-07-29] MEDS: INSULIN SLIDING SCALE (NOVOLOG) 1 VIAL SQ SCH ×7 (01:04→23:43)
[2022-07-29] MEDS: FUROSEMIDE INJECTION 100 MG in SODIUM CHLORIDE 90 ML IVPB SCH ×2 (02:45→21:27)
[2022-07-29] MEDS: PROPOFOL 1,000,000 MCG/100 ML VIAL IVPB SCH ×4 (02:45→21:26)
[2022-07-29] MEDS: PIPERACILLIN/TAZOB 3.375 GM 3.375 GM in DEXTROSE 5%-WATER - 50 ML IVPB SCH ×3 (02:45→17:09)
[2022-07-29 07:37] LABS: BASO % 0.4 % (0-2.0); EOS % 0.8 % (0-4.5); HEMATOCRIT 33.9 % (35.4-49); HEMOGLOBIN 11.3 GM/dL (11.7-16.9); LYMPH % 6.3 % (8-40); MCH 29.8 pg (25.7-33.7); MCHC 33.3 g/dl (32.0-35.9); MEAN CELL VOLUME 89.4 fl (80-96); MEAN PLT VOLUME 9.8 fl (7.5-11.1); MONO % 6.5 % (3.8-10.2); PLATELET COUNT 249 10^3/uL (134-434); RBC 3.79 M/mm3 (4.00-5.60); RDW 13.5 % (11.9-15.9); WHITE BLOOD COUNT 8.7 K/mm3 (4.0-10.0)
[2022-07-29 07:44] LABS: CALCIUM 8.5 mg/dL (8.5-10.1)
[2022-07-29 07:45] LABS: ALBUMIN 2.3 g/dl (3.4-5.0); BLOOD UREA NITROGEN 14.5 mg/dL (7-18)
[2022-07-29 07:49] LABS: CREATININE 1.2 mg/dL (0.55-1.3); TOT PROT 6.2 g/dl (6.4-8.2)
[2022-07-29 07:50] LABS: BILIRUBIN,TOTAL 0.4 mg/dL (0.2-1)
[2022-07-29] MEDS: MUPIROCIN 2% TOPICAL OINTMENT FOR DECOLONIZATION NS SCH ×2 (09:42→21:27)
[2022-07-29] MEDS: ASPIRIN 81 MG CHEWABLE TABLETS PO SCH (09:42)
[2022-07-29] MEDS: AMINO ACIDS/PROTEIN HYDROLYS 30 ML LIQUID.PKT PO SCH ×2 (09:42→09:56)
[2022-07-29] MEDS: ENOXAPARIN NA (PORCINE) 40 MG/0.4 ML DISP.SYRIN SQ SCH (09:43)
[2022-07-29] MEDS: PANTOPRAZOLE SODIUM 40 MG VIAL IVPUSH SCH (09:43)
[2022-07-29] MEDS: levETIRAcetam 500 MG/5 ML INJECTION VIAL IVPB SCH ×2 (09:43→21:27)
[2022-07-29] MEDS: ENALAPRIL MALEATE 10 MG TABLET PO SCH (09:53)
[2022-07-29] MEDS: LEVOTHYROXINE SODIUM 100 MCG VIAL IVPUSH SCH (09:53)
[2022-07-29] MEDS ORDERED: ASPIRIN 81 MG CHEWABLE TABLETS NGT SCH (10:04)
[2022-07-29] MEDS: ACETAMINOPHEN 325 MG TABLET (FP) NR PRN (12:10)
[2022-07-29] MEDS: CHLORHEXIDINE GLUCONATE 4% CLEANSER FOR DECOLONIZATION TP SCH (21:27)
[2022-07-29] MEDS: ATORVASTATIN CA 40 MG TABLET (FP) NGT SCH (21:28)
[2022-07-30] MEDS: PIPERACILLIN/TAZOB 3.375 GM 3.375 GM in DEXTROSE 5%-WATER - 50 ML IVPB SCH ×3 (01:07→18:12)
[2022-07-30] MEDS: INSULIN SLIDING SCALE (NOVOLOG) 1 VIAL SQ SCH ×6 (05:00→23:53)
[2022-07-30 07:34] LABS: HEMATOCRIT 32.5 % (35.4-49); HEMOGLOBIN 11.1 GM/dL (11.7-16.9); MCH 30.4 pg (25.7-33.7); MCHC 34.2 g/dl (32.0-35.9); MEAN CELL VOLUME 88.9 fl (80-96); MEAN PLT VOLUME 8.7 fl (7.5-11.1); PLATELET COUNT 272 10^3/uL (134-434); RBC 3.65 M/mm3 (4.00-5.60); RDW 13.5 % (11.9-15.9); WHITE BLOOD COUNT 7.7 K/mm3 (4.0-10.0)
[2022-07-30] MEDS ORDERED: LEVOTHYROXINE SODIUM 100 MCG VIAL IVPUSH SCH ×2 (08:01→15:15)
[2022-07-30 08:02] LABS: MAGNESIUM 1.6 mg/dL (1.8-2.4)
[2022-07-30 08:06] LABS: PHOSPHOROUS 3.9 mg/dL (2.5-4.9)
[2022-07-30] MEDS: AMINO ACIDS/PROTEIN HYDROLYS 30 ML LIQUID.PKT PO SCH (08:52)
[2022-07-30] MEDS: ACETAMINOPHEN 325 MG TABLET (FP) NR PRN (08:52)
[2022-07-30] MEDS: MUPIROCIN 2% TOPICAL OINTMENT FOR DECOLONIZATION NS SCH (09:02)
[2022-07-30] MEDS: ENOXAPARIN NA (PORCINE) 40 MG/0.4 ML DISP.SYRIN SQ SCH (09:03)
[2022-07-30] MEDS: levETIRAcetam 500 MG/5 ML INJECTION VIAL IVPB SCH ×2 (09:03→21:14)
[2022-07-30] MEDS: ENALAPRIL MALEATE 10 MG TABLET NGT SCH (09:03)
[2022-07-30] MEDS: PANTOPRAZOLE SODIUM 40 MG VIAL IVPUSH SCH (09:03)
[2022-07-30] MEDS ORDERED: ACETAMINOPHEN 650 MG/20.3 ML ORAL SOLUTION (CUPS) GT PRN (10:16)
[2022-07-30] MEDS ORDERED: MAGNESIUM 2GM/50ML STERILE WATER IVPB IVPB ONE (10:30)
[2022-07-30] MEDS ORDERED: LEVOTHYROXINE NA 125 MCG TABLET (FP) NGT SCH (11:45)
[2022-07-30 12:16] LABS: CALCIUM 8.7 mg/dL (8.5-10.1)
[2022-07-30 12:17] LABS: BLOOD UREA NITROGEN 18.7 mg/dL (7-18)
[2022-07-30 12:20] LABS: CREATININE 1.4 mg/dL (0.55-1.3)
[2022-07-30] MEDS ORDERED: MAGNESIUM SULF 50% (8.12 MEQ/2 ML-1 GM VIAL) IVPB ONE (13:13)
[2022-07-30] MEDS ORDERED: POTASSIUM CHLORIDE ORAL LIQUID 20 MEQ/15 ML PO SCH (13:15)
[2022-07-30] MEDS ORDERED: POTASSIUM CHLORIDE ORAL LIQUID 20 MEQ/15 ML GT SCH (13:30)
[2022-07-30] MEDS ORDERED: ALBUTEROL SO4 2.5/IPRATROPIUM 0.5 INH SOL 3 ML VIAL.NEB. NEB ONE (15:08)
[2022-07-30] MEDS: LEVOTHYROXINE SODIUM 100 MCG VIAL IVPUSH SCH (15:37)
[2022-07-30] MEDS ORDERED: ACETAMINOPHEN 1000 MG/100 ML BAG IVPB PRN (15:39)
[2022-07-30] MEDS: KCL 10 MEQ IVPB 10 MEQ/100 ML INFUS.BAG IVPB SCH ×3 (15:56→18:12)
[2022-07-30] MEDS ORDERED: ACETAMINOPHEN 650 MG/20.3 ML ORAL SOLUTION (CUPS) NGT PRN (16:16)
[2022-07-30 16:17] LABS: ARTERIAL BLD GAS O2 SATURATION 97.1 % (95-98); ARTERIAL BLOOD GAS BASE EXCESS 8.5 mmol/L (-2-2); ARTERIAL BLOOD GAS pH 7.483 (7.350-7.450)
[2022-07-30 16:23] LABS: ALLENS TEST POSITIVE
[2022-07-30 16:32] VITALS: BMI 24.3
[2022-07-30] MEDS: CHLORHEXIDINE GLUCONATE 4% CLEANSER FOR DECOLONIZATION TP SCH (21:14)
[2022-07-30] MEDS: ATORVASTATIN CA 40 MG TABLET (FP) NGT SCH (21:14)
[2022-07-31] MEDS: PIPERACILLIN/TAZOB 3.375 GM 3.375 GM in DEXTROSE 5%-WATER - 50 ML IVPB SCH ×3 (01:01→17:25)
[2022-07-31] MEDS: INSULIN SLIDING SCALE (NOVOLOG) 1 VIAL SQ SCH ×5 (05:34→20:41)
[2022-07-31 07:36] LABS: BASO % 0.6 % (0-2.0); EOS % 1.3 % (0-4.5); HEMATOCRIT 32.2 % (35.4-49); HEMOGLOBIN 10.6 GM/dL (11.7-16.9); LYMPH % 7.7 % (8-40); MCH 29.7 pg (25.7-33.7); MCHC 33.1 g/dl (32.0-35.9); MEAN CELL VOLUME 89.6 fl (80-96); MEAN PLT VOLUME 8.9 fl (7.5-11.1); MONO % 7.1 % (3.8-10.2); NEUT % 83.3 % (42.8-82.8); PLATELET COUNT 298 10^3/uL (134-434); RBC 3.59 M/mm3 (4.00-5.60); RDW 13.6 % (11.9-15.9); WHITE BLOOD COUNT 8.7 K/mm3 (4.0-10.0)
[2022-07-31 07:44] LABS: CALCIUM 8.3 mg/dL (8.5-10.1)
[2022-07-31 07:45] LABS: ALBUMIN 2.3 g/dl (3.4-5.0); BLOOD UREA NITROGEN 18.4 mg/dL (7-18); MAGNESIUM 2.1 mg/dL (1.8-2.4)
[2022-07-31] MEDS: AMINO ACIDS/PROTEIN HYDROLYS 30 ML LIQUID.PKT PO SCH (07:47)
[2022-07-31 07:48] LABS: CREATININE 1.3 mg/dL (0.55-1.3)
[2022-07-31 07:50] LABS: BILIRUBIN,TOTAL 0.4 mg/dL (0.2-1); TOT PROT 6.5 g/dl (6.4-8.2)
[2022-07-31] MEDS: LEVOTHYROXINE SODIUM 100 MCG VIAL IVPUSH SCH (10:13)
[2022-07-31] MEDS: PANTOPRAZOLE SODIUM 40 MG VIAL IVPUSH SCH (10:13)
[2022-07-31] MEDS: levETIRAcetam 500 MG/5 ML INJECTION VIAL IVPB SCH ×2 (10:13→21:15)
[2022-07-31] MEDS ORDERED: ALBUTEROL SO4 0.083% IH SOL 2.5 MG/3 ML VIAL.NEB. NEB PRN ×2 (10:24→14:12)
[2022-07-31] MEDS ORDERED: ALBUTEROL SO4 2.5/IPRATROPIUM 0.5 INH SOL 3 ML VIAL.NEB. NEB SCH (10:30)
[2022-07-31] MEDS: ENALAPRIL MALEATE 10 MG TABLET NGT SCH (11:15)
[2022-07-31] MEDS ORDERED: LEVOTHYROXINE SODIUM 100 MCG VIAL IVPUSH SCH (12:00)
[2022-07-31] MEDS ORDERED: ACETAMINOPHEN 1000 MG/100 ML BAG IVPB PRN (14:12)
[2022-07-31] MEDS ORDERED: DEXTROSE 50%-WATER - 25 GM/50 ML VIAL IVPUSH PRN (14:12)
[2022-07-31] MEDS: ALBUTEROL SO4 2.5/IPRATROPIUM 0.5 INH SOL 3 ML VIAL.NEB. NEB SCH ×2 (16:36→20:23)
[2022-07-31] MEDS: AMINO ACIDS 4.25%/D5W 1,000 ML IV SCH (17:00)
[2022-07-31] MEDS: ENOXAPARIN NA (PORCINE) 40 MG/0.4 ML DISP.SYRIN SQ SCH (17:01)
[2022-07-31] MEDS ORDERED: PIPERACILLIN/TAZOB 3.375 GM 3.375 GM in DEXTROSE 5%-WATER - 50 ML IVPB SCH (18:00)
[2022-07-31] MEDS ORDERED: CHLORHEXIDINE GLUCONATE 4% CLEANSER FOR DECOLONIZATION TP SCH (22:00)
[2022-08-01] MEDS: INSULIN SLIDING SCALE (NOVOLOG) 1 VIAL SQ SCH ×6 (00:37→21:42)
[2022-08-01] MEDS: PIPERACILLIN/TAZOB 3.375 GM 3.375 GM in DEXTROSE 5%-WATER - 50 ML IVPB SCH ×3 (01:50→17:45)
[2022-08-01] MEDS: ALBUTEROL SO4 2.5/IPRATROPIUM 0.5 INH SOL 3 ML VIAL.NEB. NEB SCH ×4 (07:33→20:10)
[2022-08-01] MEDS: AMINO ACIDS/PROTEIN HYDROLYS 30 ML LIQUID.PKT PO SCH (09:02)
[2022-08-01] MEDS: levETIRAcetam 500 MG/5 ML INJECTION VIAL IVPB SCH ×2 (09:34→22:25)
[2022-08-01] MEDS: PANTOPRAZOLE SODIUM 40 MG VIAL IVPUSH SCH (09:34)
[2022-08-01] MEDS: LEVOTHYROXINE SODIUM 100 MCG VIAL IVPUSH SCH ×2 (09:37→10:44)
[2022-08-01] MEDS: ENOXAPARIN NA (PORCINE) 40 MG/0.4 ML DISP.SYRIN SQ SCH (10:04)
[2022-08-01 10:10] LABS: HEMATOCRIT 31.5 % (35.4-49); HEMOGLOBIN 10.4 GM/dL (11.7-16.9); MCH 29.7 pg (25.7-33.7); MEAN CELL VOLUME 89.8 fl (80-96); MEAN PLT VOLUME 8.8 fl (7.5-11.1); PLATELET COUNT 324 10^3/uL (134-434); RBC 3.51 M/mm3 (4.00-5.60); RDW 13.4 % (11.9-15.9); WHITE BLOOD COUNT 5.6 K/mm3 (4.0-10.0)
[2022-08-01 10:27] LABS: ALBUMIN 2.3 g/dl (3.4-5.0); BLOOD UREA NITROGEN 19.2 mg/dL (7-18); CALCIUM 8.9 mg/dL (8.5-10.1)
[2022-08-01 10:31] LABS: CREATININE 1.2 mg/dL (0.55-1.3)
[2022-08-01 10:33] LABS: BILIRUBIN,TOTAL 0.4 mg/dL (0.2-1); TOT PROT 6.4 g/dl (6.4-8.2)
[2022-08-01] MEDS: AMINO ACIDS 4.25%/D5W 1,000 ML IV SCH (14:30)
[2022-08-01] MEDS: ENALAPRIL MALEATE 10 MG TABLET NGT SCH (14:35)
[2022-08-01] MEDS: ATORVASTATIN CA 40 MG TABLET (FP) NGT SCH (22:26)
[2022-08-02] MEDS: INSULIN SLIDING SCALE (NOVOLOG) 1 VIAL SQ SCH ×6 (00:45→20:39)
[2022-08-02] MEDS: PIPERACILLIN/TAZOB 3.375 GM 3.375 GM in DEXTROSE 5%-WATER - 50 ML IVPB SCH ×2 (02:26→10:15)
[2022-08-02] MEDS: ALBUTEROL SO4 2.5/IPRATROPIUM 0.5 INH SOL 3 ML VIAL.NEB. NEB SCH ×4 (07:23→20:06)
[2022-08-02 09:15] LABS: HEMATOCRIT 31.6 % (35.4-49); HEMOGLOBIN 10.4 GM/dL (11.7-16.9); MCH 29.4 pg (25.7-33.7); MEAN CELL VOLUME 88.9 fl (80-96); MEAN PLT VOLUME 8.5 fl (7.5-11.1); PLATELET COUNT 354 10^3/uL (134-434); RBC 3.55 M/mm3 (4.00-5.60); RDW 13.1 % (11.9-15.9); WHITE BLOOD COUNT 5.2 K/mm3 (4.0-10.0)
[2022-08-02 09:27] LABS: ALBUMIN 2.4 g/dl (3.4-5.0); CALCIUM 8.9 mg/dL (8.5-10.1)
[2022-08-02 09:29] LABS: BLOOD UREA NITROGEN 14.4 mg/dL (7-18)
[2022-08-02 09:32] LABS: TOT PROT 6.4 g/dl (6.4-8.2)
[2022-08-02 09:33] LABS: BILIRUBIN,TOTAL 0.2 mg/dL (0.2-1)
[2022-08-02] MEDS: levETIRAcetam 500 MG/5 ML INJECTION VIAL IVPB SCH ×2 (10:14→21:36)
[2022-08-02] MEDS: AMINO ACIDS/PROTEIN HYDROLYS 30 ML LIQUID.PKT PO SCH (10:16)
[2022-08-02] MEDS: ENOXAPARIN NA (PORCINE) 40 MG/0.4 ML DISP.SYRIN SQ SCH (10:16)
[2022-08-02] MEDS: PANTOPRAZOLE SODIUM 40 MG VIAL IVPUSH SCH (10:17)
[2022-08-02] MEDS: ENALAPRIL MALEATE 10 MG TABLET NGT SCH (10:18)
[2022-08-02] MEDS: LEVOTHYROXINE SODIUM 100 MCG VIAL IVPUSH SCH (12:01)
[2022-08-02] MEDS: NYSTATIN 500,000 UNITS/5 ML SUSPENSION PO SCH (17:09)
[2022-08-02] MEDS: ATORVASTATIN CA 40 MG TABLET (FP) NGT SCH (21:36)
[2022-08-03] MEDS: NYSTATIN 500,000 UNITS/5 ML SUSPENSION PO SCH ×4 (00:35→17:37)
[2022-08-03] MEDS: INSULIN SLIDING SCALE (NOVOLOG) 1 VIAL SQ SCH ×6 (00:35→20:46)
[2022-08-03 06:57] LABS: ARTERIAL BLD GAS O2 SATURATION 97.4 % (95-98); ARTERIAL BLOOD GAS BASE EXCESS 5.6 mmol/L (-2-2); ARTERIAL BLOOD GAS PO2 93.8 mmHg (80-100); ARTERIAL BLOOD GAS pH 7.443 (7.350-7.450)
[2022-08-03] MEDS ORDERED: LEVOTHYROXINE NA 75 MCG TABLET (FP) PO SCH (07:00)
[2022-08-03 07:02] LABS: ALLENS TEST POSITIVE
[2022-08-03] MEDS ORDERED: ALBUTEROL SO4 0.083% IH SOL 2.5 MG/3 ML VIAL.NEB. NEB PRN (07:21)
[2022-08-03] MEDS ORDERED: DEXTROSE 50%-WATER - 25 GM/50 ML VIAL IVPUSH PRN (07:21)
[2022-08-03] MEDS ORDERED: INSULIN SLIDING SCALE (NOVOLOG) 1 VIAL SQ SCH (08:00)
[2022-08-03] MEDS: ALBUTEROL SO4 2.5/IPRATROPIUM 0.5 INH SOL 3 ML VIAL.NEB. NEB SCH ×4 (08:05→20:03)
[2022-08-03] MEDS ORDERED: ASPIRIN/DIPYRIDAMOLE 25 MG/200 MG CAPSULE PO SCH (10:00)
[2022-08-03] MEDS ORDERED: PANTOPRAZOLE 40 MG TABLET PO SCH (10:00)
[2022-08-03] MEDS: levETIRAcetam 500 MG/5 ML INJECTION VIAL IVPB SCH ×2 (10:03→21:36)
[2022-08-03] MEDS: AMINO ACIDS/PROTEIN HYDROLYS 30 ML LIQUID.PKT PO SCH (10:03)
[2022-08-03] MEDS: PANTOPRAZOLE 40 MG TABLET PO SCH (10:04)
[2022-08-03] MEDS: ASPIRIN/DIPYRIDAMOLE 25 MG/200 MG CAPSULE PO SCH ×2 (10:04→21:35)
[2022-08-03] MEDS: ENOXAPARIN NA (PORCINE) 40 MG/0.4 ML DISP.SYRIN SQ SCH (10:04)
[2022-08-03] MEDS: ENALAPRIL MALEATE 10 MG TABLET NGT SCH (10:07)
[2022-08-03] MEDS ORDERED: INSULIN (NOVOLOG) ASPART 100 UNITS/ML 10ML VIAL ONE (11:55)
[2022-08-03] MEDS: ATORVASTATIN CA 40 MG TABLET (FP) NGT SCH (21:36)
[2022-08-03] MEDS ORDERED: INSULIN (LEVEMIR) 100 UNITS/ML UNITS SQ ONE (22:00)
[2022-08-04] MEDS: INSULIN SLIDING SCALE (NOVOLOG) 1 VIAL SQ SCH ×6 (01:03→21:30)
[2022-08-04] MEDS: NYSTATIN 500,000 UNITS/5 ML SUSPENSION PO SCH ×4 (01:05→17:18)
[2022-08-04] MEDS: INSULIN (LEVEMIR) 100 UNITS/ML UNITS SQ SCH (06:36)
[2022-08-04] MEDS: LEVOTHYROXINE NA 100 MCG TABLET (FP) PO SCH (06:37)
[2022-08-04] MEDS ORDERED: INSULIN (LEVEMIR) 100 UNITS/ML UNITS SQ SCH (07:00)
[2022-08-04] MEDS ORDERED: LEVOTHYROXINE NA 75 MCG TABLET (FP) PO SCH (07:00)
[2022-08-04] MEDS: ALBUTEROL SO4 2.5/IPRATROPIUM 0.5 INH SOL 3 ML VIAL.NEB. NEB SCH ×4 (07:37→19:40)
[2022-08-04] MEDS ORDERED: INSULIN (NOVOLOG) ASPART 100 UNITS/ML 10ML VIAL ONE (08:34)
[2022-08-04] MEDS: AMINO ACIDS/PROTEIN HYDROLYS 30 ML LIQUID.PKT PO SCH (08:36)
[2022-08-04] MEDS: PANTOPRAZOLE 40 MG TABLET PO SCH (09:43)
[2022-08-04] MEDS: ENALAPRIL MALEATE 10 MG TABLET NGT SCH (09:43)
[2022-08-04] MEDS: ENOXAPARIN NA (PORCINE) 40 MG/0.4 ML DISP.SYRIN SQ SCH (09:43)
[2022-08-04] MEDS: levETIRAcetam 500 MG/5 ML INJECTION VIAL IVPB SCH ×2 (09:44→21:30)
[2022-08-04] MEDS: ASPIRIN/DIPYRIDAMOLE 25 MG/200 MG CAPSULE PO SCH ×2 (09:44→21:30)
[2022-08-04] MEDS: ATORVASTATIN CA 40 MG TABLET (FP) NGT SCH (21:30)
[2022-08-05] MEDS: NYSTATIN 500,000 UNITS/5 ML SUSPENSION PO SCH ×4 (00:09→19:17)
[2022-08-05] MEDS: INSULIN SLIDING SCALE (NOVOLOG) 1 VIAL SQ SCH ×6 (00:55→21:56)
[2022-08-05] MEDS: LEVOTHYROXINE NA 100 MCG TABLET (FP) PO SCH (06:24)
[2022-08-05] MEDS: INSULIN (LEVEMIR) 100 UNITS/ML UNITS SQ SCH (07:21)
[2022-08-05] MEDS: ALBUTEROL SO4 2.5/IPRATROPIUM 0.5 INH SOL 3 ML VIAL.NEB. NEB SCH ×4 (07:26→19:38)
[2022-08-05] MEDS: AMINO ACIDS/PROTEIN HYDROLYS 30 ML LIQUID.PKT PO SCH (08:29)
[2022-08-05] MEDS ORDERED: INSULIN (NOVOLOG) ASPART 100 UNITS/ML 10ML VIAL ONE (08:36)
[2022-08-05] MEDS: PANTOPRAZOLE 40 MG TABLET PO SCH (09:52)
[2022-08-05] MEDS: ENOXAPARIN NA (PORCINE) 40 MG/0.4 ML DISP.SYRIN SQ SCH (09:52)
[2022-08-05] MEDS: levETIRAcetam 500 MG/5 ML INJECTION VIAL IVPB SCH ×2 (09:52→21:41)
[2022-08-05] MEDS: ASPIRIN/DIPYRIDAMOLE 25 MG/200 MG CAPSULE PO SCH ×2 (09:52→21:41)
[2022-08-05] MEDS: ENALAPRIL MALEATE 10 MG TABLET NGT SCH (09:53)
[2022-08-05 09:57] LABS: CHLORIDE 107 mmol/L (98-107); SODIUM 134 mmol/L (136-145)
[2022-08-05 10:06] LABS: CO2 19 mmol/L (21-32)
[2022-08-05 10:09] LABS: CREATININE 2.2 mg/dL (0.55-1.3); SGOT/AST 15 U/L (15-37); SGPT/ALT 26 U/L (13-61)
[2022-08-05 10:11] LABS: BILIRUBIN,TOTAL 0.3 mg/dL (0.2-1); TOT PROT 8.2 g/dl (6.4-8.2)
[2022-08-05 10:41] LABS: ALBUMIN 3.1 g/dl (3.4-5.0); ALK PHOS 197 U/L (45-117); ANION GAP 9 MMOL/L (8-16); CALCIUM 10.3 mg/dL (8.5-10.1); GLUCOSE,RANDOM 483 mg/dL (74-106)
[2022-08-05 13:05] LABS: CHLORIDE 104 mmol/L (98-107); SODIUM 131 mmol/L (136-145)
[2022-08-05 13:07] LABS: BLOOD UREA NITROGEN 50.6 mg/dL (7-18); CALCIUM 9.3 mg/dL (8.5-10.1); CO2 18 mmol/L (21-32)
[2022-08-05 13:10] LABS: CREATININE 2.4 mg/dL (0.55-1.3); SGOT/AST 12 U/L (15-37); SGPT/ALT 23 U/L (13-61)
[2022-08-05 13:12] LABS: BILIRUBIN,TOTAL 0.2 mg/dL (0.2-1); TOT PROT 7.8 g/dl (6.4-8.2)
[2022-08-05 13:13] LABS: ALK PHOS 198 U/L (45-117)
[2022-08-05 13:17] LABS: ANION GAP 9 MMOL/L (8-16); GLUCOSE,RANDOM 639 mg/dL (74-106)
[2022-08-05] MEDS ORDERED: CALCIUM GLUCONATE 10% - 1,000 MG/10 ML VIAL IVPUSH ONE (14:11)
[2022-08-05] MEDS ORDERED: SODIUM BICARBONATE 8.4% 50 MEQ/50 ML VIAL IVPUSH ONE (14:11)
[2022-08-05] MEDS ORDERED: SODIUM ZIRCONIUM CYCLOSILICATE (LOKELMA) 5 GM PACKET PO SCH (14:15)
[2022-08-05] MEDS ORDERED: INSULIN REGULAR HUMAN 100 UNITS/ML *VIAL IVPUSH ONE ×2 (14:19→15:00)
[2022-08-05] MEDS ORDERED: SODIUM CHLORIDE 1,000 ML IV SCH (14:30)
[2022-08-05] MEDS ORDERED: CALCIUM GLUCONATE IN NACL 1 GM/50 ML BAG IVPB ONE (14:30)
[2022-08-05] MEDS: SODIUM CHLORIDE 1,000 ML IV STA ×2 (14:46→15:51)
[2022-08-05 15:22] LABS: ARTERIAL BLD GAS O2 SATURATION 97.8 % (95-98); ARTERIAL BLOOD GAS BASE EXCESS -5.6 mmol/L (-2-2); ARTERIAL BLOOD GAS pH 7.397 (7.350-7.450)
[2022-08-05 15:23] LABS: ALLENS TEST POSITIVE
[2022-08-05 17:04] LABS: CHLORIDE 104 mmol/L (98-107)
[2022-08-05 17:06] LABS: ALBUMIN 2.9 g/dl (3.4-5.0); BLOOD UREA NITROGEN 56.3 mg/dL (7-18); CALCIUM 9.8 mg/dL (8.5-10.1); CO2 16 mmol/L (21-32)
[2022-08-05 17:09] LABS: CREATININE 2.5 mg/dL (0.55-1.3); SGOT/AST 12 U/L (15-37)
[2022-08-05 17:10] LABS: SGPT/ALT 24 U/L (13-61)
[2022-08-05 17:11] LABS: BILIRUBIN,TOTAL 0.1 mg/dL (0.2-1); TOT PROT 7.8 g/dl (6.4-8.2)
[2022-08-05 17:12] LABS: ALK PHOS 201 U/L (45-117); ANION GAP 13 MMOL/L (8-16); GLUCOSE,RANDOM 694 mg/dL (74-106); SODIUM 134 mmol/L (136-145)
[2022-08-05] MEDS ORDERED: INSULIN SLIDING SCALE (NOVOLOG) 1 VIAL SQ SCH (19:43)
[2022-08-05 19:57] LABS: ALBUMIN 2.6 g/dl (3.4-5.0); BLOOD UREA NITROGEN 54.3 mg/dL (7-18); CALCIUM 9.6 mg/dL (8.5-10.1)
[2022-08-05 20:02] LABS: BILIRUBIN,TOTAL 0.1 mg/dL (0.2-1); TOT PROT 6.9 g/dl (6.4-8.2)
[2022-08-05] MEDS: ATORVASTATIN CA 40 MG TABLET (FP) NGT SCH (21:42)
[2022-08-06] MEDS: NYSTATIN 500,000 UNITS/5 ML SUSPENSION PO SCH ×5 (00:58→23:43)
[2022-08-06] MEDS: INSULIN (LEVEMIR) 100 UNITS/ML UNITS SQ SCH (06:22)
[2022-08-06] MEDS: INSULIN SLIDING SCALE (NOVOLOG) 1 VIAL SQ SCH ×4 (06:23→23:42)
[2022-08-06] MEDS: LEVOTHYROXINE NA 100 MCG TABLET (FP) PO SCH (06:25)
[2022-08-06] MEDS: ALBUTEROL SO4 2.5/IPRATROPIUM 0.5 INH SOL 3 ML VIAL.NEB. NEB SCH ×4 (08:37→20:00)
[2022-08-06] MEDS: levETIRAcetam 500 MG/5 ML INJECTION VIAL IVPB SCH ×2 (10:23→23:37)
[2022-08-06] MEDS: ENOXAPARIN NA (PORCINE) 40 MG/0.4 ML DISP.SYRIN SQ SCH (10:24)
[2022-08-06] MEDS: AMINO ACIDS/PROTEIN HYDROLYS 30 ML LIQUID.PKT PO SCH (10:25)
[2022-08-06] MEDS: ASPIRIN/DIPYRIDAMOLE 25 MG/200 MG CAPSULE PO SCH ×2 (10:25→23:37)
[2022-08-06] MEDS: PANTOPRAZOLE 40 MG TABLET PO SCH (10:26)
[2022-08-06] MEDS: SODIUM CHLORIDE 1,000 ML IV SCH (13:00)
[2022-08-06 16:00] LABS: CALCIUM 8.8 mg/dL (8.5-10.1)
[2022-08-06 16:01] LABS: ALBUMIN 2.6 g/dl (3.4-5.0); BLOOD UREA NITROGEN 34.7 mg/dL (7-18)
[2022-08-06 16:04] LABS: CREATININE 1.3 mg/dL (0.55-1.3)
[2022-08-06 16:05] LABS: BILIRUBIN,TOTAL 0.2 mg/dL (0.2-1); TOT PROT 6.7 g/dl (6.4-8.2)
[2022-08-06] MEDS: ATORVASTATIN CA 40 MG TABLET (FP) NGT SCH (23:41)
[2022-08-07] MEDS: NYSTATIN 500,000 UNITS/5 ML SUSPENSION PO SCH ×4 (07:03→23:12)
[2022-08-07] MEDS: LEVOTHYROXINE NA 100 MCG TABLET (FP) PO SCH (07:04)
[2022-08-07] MEDS: INSULIN (LEVEMIR) 100 UNITS/ML UNITS SQ SCH (07:04)
[2022-08-07] MEDS: INSULIN SLIDING SCALE (NOVOLOG) 1 VIAL SQ SCH ×4 (07:05→23:10)
[2022-08-07] MEDS: ALBUTEROL SO4 2.5/IPRATROPIUM 0.5 INH SOL 3 ML VIAL.NEB. NEB SCH ×4 (07:34→20:05)
[2022-08-07] MEDS: SODIUM CHLORIDE 1,000 ML IV SCH ×2 (09:34→13:04)
[2022-08-07] MEDS: ENOXAPARIN NA (PORCINE) 40 MG/0.4 ML DISP.SYRIN SQ SCH (09:40)
[2022-08-07] MEDS: ASPIRIN/DIPYRIDAMOLE 25 MG/200 MG CAPSULE PO SCH ×2 (09:41→23:10)
[2022-08-07] MEDS: levETIRAcetam 500 MG/5 ML INJECTION VIAL IVPB SCH ×2 (09:41→23:10)
[2022-08-07] MEDS: PANTOPRAZOLE 40 MG TABLET PO SCH (09:42)
[2022-08-07] MEDS: AMINO ACIDS/PROTEIN HYDROLYS 30 ML LIQUID.PKT PO SCH (09:42)
[2022-08-07 09:58] LABS: ALBUMIN 2.6 g/dl (3.4-5.0); CALCIUM 8.8 mg/dL (8.5-10.1)
[2022-08-07 09:59] LABS: BLOOD UREA NITROGEN 23.2 mg/dL (7-18)
[2022-08-07 10:01] LABS: CREATININE 0.9 mg/dL (0.55-1.3)
[2022-08-07 10:02] LABS: TOT PROT 6.7 g/dl (6.4-8.2)
[2022-08-07 10:06] LABS: BILIRUBIN,TOTAL 0.2 mg/dL (0.2-1)
[2022-08-07] MEDS: VANCOMYCIN 250 MG/5 ML ORAL SOLUTION PO SCH ×2 (17:14→23:13)
[2022-08-07] MEDS: ATORVASTATIN CA 40 MG TABLET (FP) NGT SCH (23:08)
[2022-08-08] MEDS: VANCOMYCIN 250 MG/5 ML ORAL SOLUTION PO SCH ×4 (07:08→23:39)
[2022-08-08] MEDS: NYSTATIN 500,000 UNITS/5 ML SUSPENSION PO SCH ×4 (07:08→23:40)
[2022-08-08] MEDS: LEVOTHYROXINE NA 100 MCG TABLET (FP) PO SCH (07:09)
[2022-08-08] MEDS: INSULIN (LEVEMIR) 100 UNITS/ML UNITS SQ SCH (07:09)
[2022-08-08] MEDS: INSULIN SLIDING SCALE (NOVOLOG) 1 VIAL SQ SCH ×4 (07:09→22:34)
[2022-08-08] MEDS: ALBUTEROL SO4 2.5/IPRATROPIUM 0.5 INH SOL 3 ML VIAL.NEB. NEB SCH ×4 (07:30→20:20)
[2022-08-08 10:12] LABS: HEMATOCRIT 31.2 % (35.4-49); HEMOGLOBIN 10.8 GM/dL (11.7-16.9); MCH 30.4 pg (25.7-33.7); MCHC 34.4 g/dl (32.0-35.9); MEAN CELL VOLUME 88.2 fl (80-96); PLATELET COUNT 373 10^3/uL (134-434); RBC 3.54 M/mm3 (4.00-5.60); RDW 13.7 % (11.9-15.9); WHITE BLOOD COUNT 7.6 K/mm3 (4.0-10.0)
[2022-08-08 10:30] LABS: CALCIUM 9.4 mg/dL (8.5-10.1)
[2022-08-08 10:31] LABS: ALBUMIN 2.7 g/dl (3.4-5.0); BLOOD UREA NITROGEN 14.5 mg/dL (7-18); MAGNESIUM 1.9 mg/dL (1.8-2.4)
[2022-08-08 10:33] LABS: CREATININE 0.9 mg/dL (0.55-1.3)
[2022-08-08 10:35] LABS: BILIRUBIN,TOTAL 0.3 mg/dL (0.2-1); TOT PROT 6.7 g/dl (6.4-8.2)
[2022-08-08] MEDS: LACTOBACILLUS ACIDOPHILUS 1 TABLET PO SCH (11:04)
[2022-08-08] MEDS: AMINO ACIDS/PROTEIN HYDROLYS 30 ML LIQUID.PKT PO SCH (11:04)
[2022-08-08] MEDS: PANTOPRAZOLE 40 MG TABLET PO SCH (11:04)
[2022-08-08] MEDS: ASPIRIN/DIPYRIDAMOLE 25 MG/200 MG CAPSULE PO SCH ×2 (11:04→23:37)
[2022-08-08] MEDS: ENOXAPARIN NA (PORCINE) 40 MG/0.4 ML DISP.SYRIN SQ SCH (11:04)
[2022-08-08] MEDS ORDERED: INSULIN (NOVOLOG) ASPART 100 UNITS/ML 10ML VIAL ONE ×2 (11:40→17:28)
[2022-08-08] MEDS: levETIRAcetam 500 MG/5 ML INJECTION VIAL IVPB SCH (11:43)
[2022-08-08] MEDS: ENALAPRIL MALEATE 10 MG TABLET PO SCH (14:53)
[2022-08-08] MEDS: ATORVASTATIN CA 40 MG TABLET (FP) PO SCH (22:34)
[2022-08-08] MEDS: levETIRAcetam 500 MG/5 ML ORAL SOLUTION (UNIT-DOSE CUPS) PO SCH (22:35)
[2022-08-09] MEDS: LEVOTHYROXINE NA 100 MCG TABLET (FP) PO SCH (06:00)
[2022-08-09] MEDS: NYSTATIN 500,000 UNITS/5 ML SUSPENSION PO SCH ×3 (06:00→17:39)
[2022-08-09] MEDS: VANCOMYCIN 250 MG/5 ML ORAL SOLUTION PO SCH ×3 (06:00→17:39)
[2022-08-09] MEDS: INSULIN (LEVEMIR) 100 UNITS/ML UNITS SQ SCH (06:01)
[2022-08-09] MEDS: INSULIN SLIDING SCALE (NOVOLOG) 1 VIAL SQ SCH ×4 (06:15→22:21)
[2022-08-09] MEDS: ALBUTEROL SO4 2.5/IPRATROPIUM 0.5 INH SOL 3 ML VIAL.NEB. NEB SCH ×4 (07:33→20:54)
[2022-08-09] MEDS: AMINO ACIDS/PROTEIN HYDROLYS 30 ML LIQUID.PKT PO SCH (10:19)
[2022-08-09] MEDS: ASPIRIN/DIPYRIDAMOLE 25 MG/200 MG CAPSULE PO SCH ×2 (10:19→22:10)
[2022-08-09] MEDS: levETIRAcetam 500 MG/5 ML ORAL SOLUTION (UNIT-DOSE CUPS) PO SCH ×2 (10:19→22:09)
[2022-08-09] MEDS: LACTOBACILLUS ACIDOPHILUS 1 TABLET PO SCH (10:19)
[2022-08-09] MEDS: ENALAPRIL MALEATE 10 MG TABLET PO SCH (10:19)
[2022-08-09] MEDS: PANTOPRAZOLE 40 MG TABLET PO SCH (10:19)
[2022-08-09] MEDS: ENOXAPARIN NA (PORCINE) 40 MG/0.4 ML DISP.SYRIN SQ SCH (10:56)
[2022-08-09] MEDS ORDERED: INSULIN (NOVOLOG) ASPART 100 UNITS/ML 10ML VIAL ONE (11:30)
[2022-08-09] MEDS: ATORVASTATIN CA 40 MG TABLET (FP) PO SCH (22:09)
[2022-08-10] MEDS: VANCOMYCIN 250 MG/5 ML ORAL SOLUTION PO SCH ×4 (01:03→17:59)
[2022-08-10] MEDS: NYSTATIN 500,000 UNITS/5 ML SUSPENSION PO SCH ×4 (01:04→17:59)
[2022-08-10] MEDS: INSULIN (LEVEMIR) 100 UNITS/ML UNITS SQ SCH (06:19)
[2022-08-10] MEDS: INSULIN SLIDING SCALE (NOVOLOG) 1 VIAL SQ SCH ×4 (06:19→21:42)
[2022-08-10] MEDS: LEVOTHYROXINE NA 100 MCG TABLET (FP) PO SCH (06:20)
[2022-08-10] MEDS: ALBUTEROL SO4 2.5/IPRATROPIUM 0.5 INH SOL 3 ML VIAL.NEB. NEB SCH ×4 (08:41→20:55)
[2022-08-10 10:20] LABS: CALCIUM 9.6 mg/dL (8.5-10.1)
[2022-08-10 10:22] LABS: CREATININE 1.1 mg/dL (0.55-1.3)
[2022-08-10 10:23] LABS: BILIRUBIN,TOTAL 0.2 mg/dL (0.2-1); TOT PROT 6.7 g/dl (6.4-8.2)
[2022-08-10 10:24] LABS: BLOOD UREA NITROGEN 18.1 mg/dL (7-18)
[2022-08-10 10:26] LABS: ALBUMIN 2.7 g/dl (3.4-5.0)
[2022-08-10] MEDS: PANTOPRAZOLE 40 MG TABLET PO SCH (10:32)
[2022-08-10] MEDS: AMINO ACIDS/PROTEIN HYDROLYS 30 ML LIQUID.PKT PO SCH (10:32)
[2022-08-10] MEDS: ASPIRIN/DIPYRIDAMOLE 25 MG/200 MG CAPSULE PO SCH ×2 (10:32→21:41)
[2022-08-10] MEDS: ENALAPRIL MALEATE 10 MG TABLET PO SCH (10:33)
[2022-08-10] MEDS: LACTOBACILLUS ACIDOPHILUS 1 TABLET PO SCH (10:33)
[2022-08-10] MEDS: levETIRAcetam 500 MG/5 ML ORAL SOLUTION (UNIT-DOSE CUPS) PO SCH ×2 (10:33→21:41)
[2022-08-10] MEDS: ENOXAPARIN NA (PORCINE) 40 MG/0.4 ML DISP.SYRIN SQ SCH (10:33)
[2022-08-10] MEDS ORDERED: INSULIN (NOVOLOG) ASPART 100 UNITS/ML 10ML VIAL ONE ×2 (12:45→21:23)
[2022-08-10] MEDS: ATORVASTATIN CA 40 MG TABLET (FP) PO SCH (21:41)
[2022-08-11] MEDS: VANCOMYCIN 250 MG/5 ML ORAL SOLUTION PO SCH ×5 (00:54→23:19)
[2022-08-11] MEDS: NYSTATIN 500,000 UNITS/5 ML SUSPENSION PO SCH ×5 (00:54→23:18)
[2022-08-11] MEDS: LEVOTHYROXINE NA 100 MCG TABLET (FP) PO SCH (06:28)
[2022-08-11] MEDS: INSULIN (LEVEMIR) 100 UNITS/ML UNITS SQ SCH (06:29)
[2022-08-11] MEDS: INSULIN SLIDING SCALE (NOVOLOG) 1 VIAL SQ SCH ×4 (06:36→22:10)
[2022-08-11] MEDS: ALBUTEROL SO4 2.5/IPRATROPIUM 0.5 INH SOL 3 ML VIAL.NEB. NEB SCH ×4 (08:05→20:05)
[2022-08-11] MEDS: LACTOBACILLUS ACIDOPHILUS 1 TABLET PO SCH (10:04)
[2022-08-11] MEDS: levETIRAcetam 500 MG/5 ML ORAL SOLUTION (UNIT-DOSE CUPS) PO SCH ×2 (10:04→22:08)
[2022-08-11] MEDS: PANTOPRAZOLE 40 MG TABLET PO SCH (10:04)
[2022-08-11] MEDS: ASPIRIN/DIPYRIDAMOLE 25 MG/200 MG CAPSULE PO SCH ×2 (10:04→22:09)
[2022-08-11] MEDS: ENALAPRIL MALEATE 10 MG TABLET PO SCH (10:04)
[2022-08-11] MEDS: ENOXAPARIN NA (PORCINE) 40 MG/0.4 ML DISP.SYRIN SQ SCH (10:04)
[2022-08-11] MEDS: AMINO ACIDS/PROTEIN HYDROLYS 30 ML LIQUID.PKT PO SCH (10:05)
[2022-08-11] MEDS: ATORVASTATIN CA 40 MG TABLET (FP) PO SCH (22:08)
[2022-08-12] MEDS: LEVOTHYROXINE NA 100 MCG TABLET (FP) PO SCH (06:59)
[2022-08-12] MEDS: VANCOMYCIN 250 MG/5 ML ORAL SOLUTION PO SCH ×3 (06:59→17:18)
[2022-08-12] MEDS: NYSTATIN 500,000 UNITS/5 ML SUSPENSION PO SCH ×3 (06:59→17:18)
[2022-08-12] MEDS: INSULIN (LEVEMIR) 100 UNITS/ML UNITS SQ SCH (07:00)
[2022-08-12] MEDS: INSULIN SLIDING SCALE (NOVOLOG) 1 VIAL SQ SCH ×4 (07:01→23:01)
[2022-08-12] MEDS: ALBUTEROL SO4 2.5/IPRATROPIUM 0.5 INH SOL 3 ML VIAL.NEB. NEB SCH (07:33)
[2022-08-12] MEDS: ENALAPRIL MALEATE 10 MG TABLET PO SCH (09:01)
[2022-08-12] MEDS: LACTOBACILLUS ACIDOPHILUS 1 TABLET PO SCH (09:01)
[2022-08-12] MEDS: ASPIRIN/DIPYRIDAMOLE 25 MG/200 MG CAPSULE PO SCH ×2 (09:01→23:00)
[2022-08-12] MEDS: PANTOPRAZOLE 40 MG TABLET PO SCH (09:01)
[2022-08-12] MEDS: AMINO ACIDS/PROTEIN HYDROLYS 30 ML LIQUID.PKT PO SCH (09:01)
[2022-08-12] MEDS: levETIRAcetam 500 MG/5 ML ORAL SOLUTION (UNIT-DOSE CUPS) PO SCH ×2 (09:01→23:00)
[2022-08-12] MEDS: ENOXAPARIN NA (PORCINE) 40 MG/0.4 ML DISP.SYRIN SQ SCH (09:02)
[2022-08-12] MEDS: ATORVASTATIN CA 40 MG TABLET (FP) PO SCH (23:00)
[2022-08-13] MEDS: VANCOMYCIN 250 MG/5 ML ORAL SOLUTION PO SCH ×4 (00:05→17:03)
[2022-08-13] MEDS: NYSTATIN 500,000 UNITS/5 ML SUSPENSION PO SCH ×4 (00:08→17:03)
[2022-08-13] MEDS: LEVOTHYROXINE NA 100 MCG TABLET (FP) PO SCH (06:48)
[2022-08-13] MEDS: INSULIN (LEVEMIR) 100 UNITS/ML UNITS SQ SCH (06:49)
[2022-08-13] MEDS: INSULIN SLIDING SCALE (NOVOLOG) 1 VIAL SQ SCH ×4 (06:51→22:31)
[2022-08-13] MEDS: PANTOPRAZOLE 40 MG TABLET PO SCH (10:12)
[2022-08-13] MEDS: LACTOBACILLUS ACIDOPHILUS 1 TABLET PO SCH (10:12)
[2022-08-13] MEDS: levETIRAcetam 500 MG/5 ML ORAL SOLUTION (UNIT-DOSE CUPS) PO SCH ×2 (10:12→22:17)
[2022-08-13] MEDS: AMINO ACIDS/PROTEIN HYDROLYS 30 ML LIQUID.PKT PO SCH (10:12)
[2022-08-13] MEDS: ENOXAPARIN NA (PORCINE) 40 MG/0.4 ML DISP.SYRIN SQ SCH (10:12)
[2022-08-13] MEDS: ENALAPRIL MALEATE 10 MG TABLET PO SCH (10:12)
[2022-08-13] MEDS: ASPIRIN/DIPYRIDAMOLE 25 MG/200 MG CAPSULE PO SCH ×2 (10:13→22:17)
[2022-08-13] MEDS: ATORVASTATIN CA 40 MG TABLET (FP) PO SCH (22:17)
[2022-08-14] MEDS: VANCOMYCIN 250 MG/5 ML ORAL SOLUTION PO SCH ×3 (00:20→11:59)
[2022-08-14] MEDS: NYSTATIN 500,000 UNITS/5 ML SUSPENSION PO SCH ×4 (00:20→18:03)
[2022-08-14] MEDS: LEVOTHYROXINE NA 100 MCG TABLET (FP) PO SCH (06:11)
[2022-08-14] MEDS: INSULIN SLIDING SCALE (NOVOLOG) 1 VIAL SQ SCH ×4 (06:20→21:57)
[2022-08-14] MEDS: INSULIN (LEVEMIR) 100 UNITS/ML UNITS SQ SCH (06:22)
[2022-08-14] MEDS ORDERED: INSULIN (NOVOLOG) ASPART 100 UNITS/ML 10ML VIAL ONE ×2 (06:48→11:51)
[2022-08-14] MEDS: ENOXAPARIN NA (PORCINE) 40 MG/0.4 ML DISP.SYRIN SQ SCH (10:04)
[2022-08-14] MEDS: AMINO ACIDS/PROTEIN HYDROLYS 30 ML LIQUID.PKT PO SCH (10:04)
[2022-08-14] MEDS: LACTOBACILLUS ACIDOPHILUS 1 TABLET PO SCH (10:05)
[2022-08-14] MEDS: ENALAPRIL MALEATE 10 MG TABLET PO SCH (10:05)
[2022-08-14] MEDS: PANTOPRAZOLE 40 MG TABLET PO SCH (10:05)
[2022-08-14] MEDS: ASPIRIN/DIPYRIDAMOLE 25 MG/200 MG CAPSULE PO SCH ×2 (10:11→21:52)
[2022-08-14 10:55] LABS: HEMATOCRIT 34.4 % (35.4-49); HEMOGLOBIN 11.4 GM/dL (11.7-16.9); MCH 29.3 pg (25.7-33.7); MCHC 33.2 g/dl (32.0-35.9); MEAN PLT VOLUME 9.6 fl (7.5-11.1); PLATELET COUNT 443 10^3/uL (134-434); RBC 3.91 M/mm3 (4.00-5.60); RDW 13.8 % (11.9-15.9); WHITE BLOOD COUNT 6.3 K/mm3 (4.0-10.0)
[2022-08-14 11:23] LABS: ALBUMIN 2.8 g/dl (3.4-5.0); BLOOD UREA NITROGEN 24.9 mg/dL (7-18); CALCIUM 9.5 mg/dL (8.5-10.1)
[2022-08-14 11:26] LABS: CREATININE 1.2 mg/dL (0.55-1.3)
[2022-08-14 11:28] LABS: BILIRUBIN,TOTAL 0.2 mg/dL (0.2-1)
[2022-08-14] MEDS: levETIRAcetam 500 MG/5 ML ORAL SOLUTION (UNIT-DOSE CUPS) PO SCH ×2 (11:40→21:52)
[2022-08-14] MEDS: ATORVASTATIN CA 40 MG TABLET (FP) PO SCH (21:52)
[2022-08-15] MEDS: NYSTATIN 500,000 UNITS/5 ML SUSPENSION PO SCH ×5 (01:20→23:30)
[2022-08-15] MEDS: LEVOTHYROXINE NA 100 MCG TABLET (FP) PO SCH (06:18)
[2022-08-15] MEDS: INSULIN SLIDING SCALE (NOVOLOG) 1 VIAL SQ SCH ×4 (06:23→21:49)
[2022-08-15] MEDS: INSULIN (LEVEMIR) 100 UNITS/ML UNITS SQ SCH (06:25)
[2022-08-15] MEDS: ENOXAPARIN NA (PORCINE) 40 MG/0.4 ML DISP.SYRIN SQ SCH (11:09)
[2022-08-15] MEDS: LACTOBACILLUS ACIDOPHILUS 1 TABLET PO SCH (11:09)
[2022-08-15] MEDS: PANTOPRAZOLE 40 MG TABLET PO SCH (11:09)
[2022-08-15] MEDS: ENALAPRIL MALEATE 10 MG TABLET PO SCH (11:09)
[2022-08-15] MEDS: ASPIRIN/DIPYRIDAMOLE 25 MG/200 MG CAPSULE PO SCH ×2 (11:10→21:48)
[2022-08-15] MEDS: levETIRAcetam 500 MG/5 ML ORAL SOLUTION (UNIT-DOSE CUPS) PO SCH ×2 (11:10→21:48)
[2022-08-15] MEDS: AMINO ACIDS/PROTEIN HYDROLYS 30 ML LIQUID.PKT PO SCH (11:12)
[2022-08-15] MEDS: ATORVASTATIN CA 40 MG TABLET (FP) PO SCH (21:48)
[2022-08-15] MEDS ORDERED: GLUCAGON 1 MG KIT IM ONE (21:52)
[2022-08-16] MEDS: LEVOTHYROXINE NA 100 MCG TABLET (FP) PO SCH (06:13)
[2022-08-16] MEDS: NYSTATIN 500,000 UNITS/5 ML SUSPENSION PO SCH ×3 (06:13→17:01)
[2022-08-16] MEDS: INSULIN (LEVEMIR) 100 UNITS/ML UNITS SQ SCH (07:46)
[2022-08-16] MEDS: INSULIN SLIDING SCALE (NOVOLOG) 1 VIAL SQ SCH ×4 (07:47→21:30)
[2022-08-16] MEDS: ENALAPRIL MALEATE 10 MG TABLET PO SCH (09:56)
[2022-08-16] MEDS: levETIRAcetam 500 MG/5 ML ORAL SOLUTION (UNIT-DOSE CUPS) PO SCH ×2 (09:56→21:29)
[2022-08-16] MEDS: LACTOBACILLUS ACIDOPHILUS 1 TABLET PO SCH (09:56)
[2022-08-16] MEDS: PANTOPRAZOLE 40 MG TABLET PO SCH (09:56)
[2022-08-16] MEDS: AMINO ACIDS/PROTEIN HYDROLYS 30 ML LIQUID.PKT PO SCH (09:56)
[2022-08-16] MEDS: ENOXAPARIN NA (PORCINE) 40 MG/0.4 ML DISP.SYRIN SQ SCH (09:57)
[2022-08-16] MEDS: ASPIRIN/DIPYRIDAMOLE 25 MG/200 MG CAPSULE PO SCH ×2 (09:57→21:30)
[2022-08-16 10:15] LABS: CALCIUM 9.6 mg/dL (8.5-10.1)
[2022-08-16 10:16] LABS: ALBUMIN 2.8 g/dl (3.4-5.0); BLOOD UREA NITROGEN 25.4 mg/dL (7-18)
[2022-08-16 10:19] LABS: CREATININE 1.2 mg/dL (0.55-1.3)
[2022-08-16 10:20] LABS: BILIRUBIN,TOTAL 0.5 mg/dL (0.2-1)
[2022-08-16 10:21] LABS: TOT PROT 6.9 g/dl (6.4-8.2)
[2022-08-16] MEDS: SODIUM CHLORIDE 1,000 ML IV SCH (14:02)
[2022-08-16] MEDS ORDERED: INSULIN (NOVOLOG) ASPART 100 UNITS/ML 10ML VIAL ONE (20:12)
[2022-08-16] MEDS: ATORVASTATIN CA 40 MG TABLET (FP) PO SCH (21:29)
[2022-08-17] MEDS: NYSTATIN 500,000 UNITS/5 ML SUSPENSION PO SCH ×3 (00:35→12:26)
[2022-08-17] MEDS: SODIUM CHLORIDE 1,000 ML IV SCH (00:45)
[2022-08-17] MEDS: INSULIN (LEVEMIR) 100 UNITS/ML UNITS SQ SCH (06:06)
[2022-08-17] MEDS: INSULIN SLIDING SCALE (NOVOLOG) 1 VIAL SQ SCH ×2 (06:06→12:27)
[2022-08-17] MEDS: LEVOTHYROXINE NA 100 MCG TABLET (FP) PO SCH (06:07)
[2022-08-17 09:40] LABS: ALBUMIN 2.8 g/dl (3.4-5.0); BLOOD UREA NITROGEN 22.1 mg/dL (7-18); CALCIUM 9.5 mg/dL (8.5-10.1)
[2022-08-17 09:43] LABS: CREATININE 1.2 mg/dL (0.55-1.3)
[2022-08-17 09:44] LABS: TOT PROT 6.6 g/dl (6.4-8.2)
[2022-08-17 09:45] LABS: BILIRUBIN,TOTAL 0.4 mg/dL (0.2-1)
[2022-08-17] MEDS: ASPIRIN/DIPYRIDAMOLE 25 MG/200 MG CAPSULE PO SCH (09:47)
[2022-08-17] MEDS: PANTOPRAZOLE 40 MG TABLET PO SCH (09:47)
[2022-08-17] MEDS: levETIRAcetam 500 MG/5 ML ORAL SOLUTION (UNIT-DOSE CUPS) PO SCH (09:47)
[2022-08-17] MEDS: LACTOBACILLUS ACIDOPHILUS 1 TABLET PO SCH (09:47)
[2022-08-17] MEDS: AMINO ACIDS/PROTEIN HYDROLYS 30 ML LIQUID.PKT PO SCH (09:47)
[2022-08-17] MEDS: ENOXAPARIN NA (PORCINE) 40 MG/0.4 ML DISP.SYRIN SQ SCH (09:48)
[2022-08-17] MEDS ORDERED: ENALAPRIL MALEATE 5 MG TABLET PO SCH (10:00)
[2022-08-17 13:42] VITALS: BP 107/69; PULSE 65; RESP 20; TEMP 98
== END 2022-08-17 16:00 | DRG 100 ==
LOC: JER 14:27 → JERBED 16:07 → JICU 22:47 → J8W 07-31 13:18
PROVIDERS: ADMIT Family Medicine; ATTEND Family Medicine
PROC: 0BH17EZ Insertion of Endotracheal Airway into Trachea, Via Natural or Artificial Opening (ICD-10-PCS; principal; 2022-07-25)
PROC: 5A1955Z Respiratory Ventilation, Greater than 96 Consecutive Hours (ICD-10-PCS; 2022-07-25)
PROC: 4A10X4Z Monitoring of Central Nervous Electrical Activity, External Approach (ICD-10-PCS; 2022-07-26)
DX: G40.901 Epilepsy, unspecified, not intractable, with status epilepticus (principal); E11.641 Type 2 diabetes mellitus with hypoglycemia with coma; I63.89 Other cerebral infarction; J69.0 Pneumonitis due to inhalation of food and vomit; J96.01 Acute respiratory failure with hypoxia; I69.351 Hemiplegia and hemiparesis following cerebral infarction affecting right dominant side; Z94.0 Kidney transplant status; A04.72 Enterocolitis due to Clostridium difficile, not specified as recurrent; N17.9 Acute kidney failure, unspecified; E03.9 Hypothyroidism, unspecified; E78.5 Hyperlipidemia, unspecified; F32.A Depression, unspecified; R41.82 Altered mental status, unspecified; I25.10 Atherosclerotic heart disease of native coronary artery without angina pectoris; I12.9 Hypertensive chronic kidney disease with stage 1 through stage 4 chronic kidney disease, or unspecified chronic kidney disease; E11.22 Type 2 diabetes mellitus with diabetic chronic kidney disease; N18.9 Chronic kidney disease, unspecified; E87.5 Hyperkalemia; E11.65 Type 2 diabetes mellitus with hyperglycemia; E11.40 Type 2 diabetes mellitus with diabetic neuropathy, unspecified; Z91.199 Patient's noncompliance with other medical treatment and regimen due to unspecified reason; Z96.653 Presence of artificial knee joint, bilateral
CPT/HCPCS: 0241U-QW; 36415; 36600; 70450-TC; 70551-TC; 71045-TC-FY; 74230-TC-FY; 76705-TC; 80048; 80053; 80061; 80307; 81003; 82010; 82550; 82803; 82962; 82977; 83605; 83735; 84100; 84443; 84484; 85025; 85027; 85610; 85730; 86704; 86708; 86803; 86850; 86900; 86901; 87040; 87070; 87086; 87205; 87324; 87340; 87449; 87493; 87517; 92611-GN; 93005; 93010; 93306-TC; 93880-TC; 94002; 94640; 95816; 97116-GP; 97161-GP; 99285-25; C9803-CS; U0003; U0005